=== PATIENT | male | born 1950 | race Caucasian/White ===

== ENCOUNTER → 2020-08-08 09:34 | Outpatient (REF) | payer MEDICARE, SELFPAY ==
--- NOTE | 2020-08-08 09:39 | CA_ITS ---
Transthoracic Echocardiogram Patient (Last, First, Middle): Ruben Corona, Gender: Male Date of : 1950 Age: 69 Procedure Date: 08/08/2020 Procedure Type: Transthoracic Echocardiogram Location: OP Height: 170.18 cm Weight: 110.22 kg BSA: 2.20 m2 Heart Rate: bpm BP: 134 / 70 mmHg Division Traffic Superintendent: Referring MD: Maykel Hernández MD Air Bag Curer: Reji Velazquez MD Symptoms: I35.0 - Nonrheumatic aortic (valve) stenosis Study Quality: Technically Difficult ECG Rhythm: Sinus Conclusions: - 1. Normal LV systolic function with grade 1 diastolic dysfunction with mild LVH 2. Mildly dilated left atrium 3. Mean gradient of 23 mm of mercury with mild aortic stenosis by calculated valve area. This is lower than last echocardiogram which could represent underestimation of calculation gradients 4. Normal RV systolic pressure 5. No pericardial effusion Findings Left Ventricle Normal left ventricular size and systolic function. There is mildly increased left ventricular wall thickness. The visually estimated ejection fraction is between 60-65%. Spectral Doppler is indicative of an impaired relaxation filling pattern. E/E prime ratio is <8, consistent with normal filling pressures. Evidence suggests grade I (mild) diastolic dysfunction. Right Ventricle Normal right ventricular cavity size and systolic function. Atria The left atrium is mildly dilated. Interatrial shunt cannot be excluded. The right atrium is normal in size. Aortic Valve The aortic valve was not well visualized. There is moderate calcification of the aortic valve. There is mild aortic valve stenosis. The peak aortic gradient is 42 mmHg.The mean gradient is 23 mmHg. There is no aortic valve regurgitation. mean gradient calculated on this study is lower than calculated on prior study could be underestimated. Mitral Valve The mitral valve was not well visualized. There is trace mitral valve regurgitation. There is no mitral valve stenosis. Pulmonic Valve The pulmonic valve was not well visualized. Tricuspid Valve Likely normal tricuspid valve structure and function. There is trace tricuspid valve regurgitation. The right ventricular systolic pressure is normal. The right ventricular systolic pressure is 15 mmHg. Normal right atrial pressure. There is no evidence of pulmonary hypertension. Great Vessels All visible segments of the aorta are normal in size. The pulmonary artery was not well visualized. Venous The inferior vena cava is normal in size and collapses greater than 50% with inspiration. Pericardium/Pleural There is no evidence of pericardial effusion. Measurements 2D Linear Measurements IVSd: 1.37 0.6-0.9/0.6-1.0 cm LVIDd: 4.52 3.9-5.3/4.2-5.9 cm LVIDd Index: 2.05 2.4-3.2/2.2-3.1 cm/m2 LVIDs: 3.04 2.0-3.6 cm LVPWd: 1.28 0.7-1.1 cm Ao Root: 3.30 2.1-3.5 cm LA Diam: 4.20 2.7-3.8/3.0-4.0 cm LAIDs Index: 1.91 1.5-2.3 cm/m2 LV Mass: 287.31 67-162/88-224 g LV Mass Index: 130.59 43-95/49-115 g/m2 LVOT Diam: 2.40 3.0+(-)1.3 cm Mitral Valve MV Pk E: 0.57 MV PK A: 0.83 MV Decel Time: 253.00 E/A: 0.70 E'Lateral: 6.19 E'Medial: 4.64 E/E' Med: 12.30 E/E' Lat: 9.20 PHT: 74.00 MVA PHT: 2.97 Decel [place]: 2.26 Aortic Valve AoV Pk Mendel: 3.23 AoV Mn Mendel: 2.24 AoV VTI: 0.79 AoV Pk Grad: 42.00 Aov Mn Grad: 23.00 JOSE MARIA Cont.VTI: 1.70 LVOT LVOT Pk Mendel: 1.36 LVOT Mn Mendel: 0.96 LVOT VTI: 0.35 LVOT Pk Grad: 7.00 LVOT Mn Grad: 4.00 LVOT Diam: 2.40 LVOT Area: 4.52 Diastolic Function MV Pk E: 0.57 MV Pk A: 0.83 E/A: 0.70 E'Medial: 4.64 E/E' Med: 12.30 E' Laterial: 6.19 E/E' Lat: 9.20 Tricuspid Valve TR Pk Mendel: 1.70 TR Pk Grad: 12.00 RA Press: 3.00 RVSP: 15.00 Great Vessels Aorta Ao Root-2D: 3.30 2.0-3.7 cm Ao Asc: 3.50 2.1-3.4 cm Pulmonary Valve PV Pk Mendel: 1.17 Peak PV Grad: 5.00 Updated in Other Vendor System with Status of Final Reji Velazquez MD electronically signed on 08/08/2020 4:47:13 PM with status of Final
== END ==
LOC: HO.CARD 09:34
PROVIDERS: Visit Provider Internal Medicine Cardiovascular Disease
DX: I35.0 Nonrheumatic aortic (valve) stenosis (principal)
CPT/HCPCS: 93306

== ENCOUNTER → 2020-08-20 09:52 | Outpatient (BNVA) | payer MEDICARE, SELFPAY | PROVIDERS: PCP Nurse Practitioner Family; Visit Provider Internal Medicine Cardiovascular Disease | DX: I35.0 Nonrheumatic aortic (valve) stenosis (principal); I10 Essential (primary) hypertension | CPT/HCPCS: 93005; 99212 ==

== ENCOUNTER → 2020-09-01 08:17 | Outpatient (BNVA) | payer MEDICARE, SELFPAY | PROVIDERS: PCP Nurse Practitioner Family; Visit Provider Internal Medicine Cardiovascular Disease ==

== ENCOUNTER → 2021-02-02 09:26 | Outpatient (REF) | payer MEDICARE, SELFPAY ==
--- NOTE | 2021-02-02 09:30 | CA_ITS ---
Transthoracic Echocardiogram Patient (Last, First, Middle): Ruben Corona, Gender: Male Date of : 1950 Age: 70 Procedure Date: 02/02/2021 Procedure Type: Transthoracic Echocardiogram Location: OP Height: 170.18 cm Weight: 104.33 kg BSA: 2.15 m2 Heart Rate: bpm BP: 150 / 70 mmHg Assistant Head Cashier: ERVIN Referring MD: Maykel Hernández MD Sweater Designer: Reji Velazquez MD Symptoms: I35.0 - Nonrheumatic aortic (valve) stenosis Study Quality: Fair ECG Rhythm: Sinus Conclusions: - 1. Hyperdynamic LV systolic function with mild LVH with LVEF greater than 70% with impaired relaxation filling pattern with suggestion of elevated left ventricular end-diastolic pressure 2. Mildly dilated left atrium 3. Mild aortic stenosis with mean gradient of 26 mm of mercury 4. Normal RV systolic pressure 5. No pericardial effusion Findings Left Ventricle Normal left ventricular size and systolic function. There is mildly increased left ventricular wall thickness. The visually estimated ejection fraction is >70%. Spectral Doppler is indicative of an impaired relaxation filling pattern. Elevated left ventricular end diastolic pressure. E/E prime ratio is between 8 and 15 consistent with indeterminate filling pressures. Right Ventricle Normal right ventricular cavity size and systolic function. Atria The left atrium is mildly dilated. There is no evidence of interatrial shunt. The right atrium is normal in size. Aortic Valve There is mild calcification of the aortic valve. There is mild aortic valve stenosis. The peak aortic gradient is 45 mmHg.The mean gradient is 26 mmHg. The aortic valve area is 1.60 cm2. There is no aortic valve regurgitation. Mitral Valve There is mild anterior mitral leaflet thickening. There is mild mitral annular calcification. There is trace mitral valve regurgitation. There is no mitral valve stenosis. Pulmonic Valve The pulmonic valve was not well visualized. Tricuspid Valve Likely normal tricuspid valve structure and function. There is trace tricuspid valve regurgitation. The right ventricular systolic pressure is normal. The right ventricular systolic pressure is 20 mmHg. There is no evidence of pulmonary hypertension. Great Vessels All visible segments of the aorta are normal in size. The pulmonary artery was not well visualized. Venous The inferior vena cava is normal in size and collapses greater than 50% with inspiration. Pericardium/Pleural There is no evidence of pericardial effusion. Prior Study Comparison No significant change compared to prior study dated: 08/08/2020. Measurements 2D Linear Measurements IVSd: 1.26 0.6-0.9/0.6-1.0 cm LVIDd: 5.26 3.9-5.3/4.2-5.9 cm LVIDd Index: 2.45 2.4-3.2/2.2-3.1 cm/m2 LVIDs: 3.01 2.0-3.6 cm LVPWd: 1.39 0.7-1.1 cm Ao Root: 2.70 2.1-3.5 cm LA Diam: 4.60 2.7-3.8/3.0-4.0 cm LAIDs Index: 2.14 1.5-2.3 cm/m2 LV Mass: 363.36 67-162/88-224 g LV Mass Index: 169.00 43-95/49-115 g/m2 LVOT Diam: 2.30 3.0+(-)1.3 cm 2D Systolic Function EF 4C: 74.50 >55% EF 2C: 67.50 >55% EF BiP: 71.90 >55% Mitral Valve MV Pk E: 0.83 MV PK A: 0.84 MV Decel Time: 202.00 E/A: 1.00 E'Lateral: 8.27 E'Medial: 8.38 E/E' Med: 9.90 E/E' Lat: 10.00 PHT: 59.00 MVA PHT: 3.73 Decel [place]: 4.12 Aortic Valve AoV Pk Mendel: 3.37 AoV Mn Mendel: 2.42 AoV VTI: 0.87 AoV Pk Grad: 45.00 Aov Mn Grad: 26.00 JOSE MARIA Cont.VTI: 1.60 LVOT LVOT Pk Mendel: 1.25 LVOT Mn Mendel: 0.90 LVOT VTI: 0.34 LVOT Pk Grad: 6.00 LVOT Mn Grad: 4.00 LVOT Diam: 2.30 LVOT Area: 4.15 Diastolic Function MV Pk E: 0.83 MV Pk A: 0.84 E/A: 1.00 E'Medial: 8.38 E/E' Med: 9.90 E' Laterial: 8.27 E/E' Lat: 10.00 Right Ventricle TAPSE (mm): 2.80 Tricuspid Valve TR Pk Mendel: 2.06 TR Pk Grad: 17.00 RA Press: 3.00 RVSP: 20.00 Great Vessels Aorta Ao Root-2D: 2.70 2.0-3.7 cm Ao Asc: 3.60 2.1-3.4 cm Updated in Other Vendor System with Status of Final Reij Velazquez MD electronically signed on 02/03/2021 3:43:21 PM with status of Final
== END ==
LOC: HO.CARD 09:26
PROVIDERS: Visit Provider Internal Medicine Cardiovascular Disease
DX: I35.0 Nonrheumatic aortic (valve) stenosis (principal)
CPT/HCPCS: 93306

== ENCOUNTER 2021-02-17 08:08 | Outpatient (REF) | payer MEDICARE, SELFPAY ==
--- NOTE | ~2021-02-17 | XR_ITS ---
EXAMINATION: XR KNEE, RIGHT CLINICAL INFORMATION: Right knee pain. COMPARISON: None TECHNIQUE: Four views of the right knee. FINDINGS: Bones and soft tissues are normal. No fracture or joint effusion. Alignment is anatomic. Mild medial femorotibial degenerative joint changes are seen. Mild soft tissue swelling anteriorly. XR/XR knee RT 4V IMPRESSION: 1. Mild medial femorotibial osteoarthritis. No acute fracture. 2. Mild prepatellar soft tissue swelling.
== END 2021-02-17 08:09 | disposition home or self-care (01) ==
LOC: HO.HMGCX 08:08
PROVIDERS: PCP Nurse Practitioner Family; Visit Provider Nurse Practitioner Family
DX: M25.561 Pain in right knee (principal)
CPT/HCPCS: 73564

== ENCOUNTER → 2021-02-23 09:07 | Outpatient (BNVA) | payer MEDICARE, SELFPAY | PROVIDERS: PCP Nurse Practitioner Family; Referring Provider Nurse Practitioner Family; Visit Provider Internal Medicine Cardiovascular Disease | DX: I35.0 Nonrheumatic aortic (valve) stenosis (principal); I10 Essential (primary) hypertension | CPT/HCPCS: 93005; 99212 ==

== ENCOUNTER 2021-04-21 16:00 | Outpatient (RCR) | payer MEDICARE, SELFPAY ==
--- NOTE | 2021-02-23 10:02 | MHC.PT.EP ---
[facility] [place] Office [place] Office [place] Office [address] [phone] F: [phone] F: [phone] F: [phone] F: [phone] Physical Therapy Plan of Care Date of Evaluation: Date of Surgery: n/a Diagnosis: R knee pain Assessment: Patient is a 70 year old R handed male who presents with s/s consistent with R knee pain. He works with daily job demands including stairs, walking, driving. Patient past medical history is fairly unremarkable. Current impairments include pain, ROM, strength, joint mobility, activity tolerance and functional mobility. Functional limitations include decreased ability to walk, stand, transfer, negotiate stairs, and perform weight bearing activities.. Patient is motivated with good rehab potential. Skilled PT will address impairments and functional limitations in order to achieve goals. Frequency and Duration: The patient will be seen 2x/week for 5 weeks Short Term Goals: I with HEP - 2 weeks full AROM without ERP - 3 weeks no warmth with palpation - 3 weeks Snf Goals: Strength 5/5 grossly - 5 weeks Able to negotiate stairs pain free - 5 weeks Able to walk 1 hour without pain - 5 weeks Treatment Plan: Modalities to reduce pain, spasms and effusion. Manual therapy to restore motion and function. Therapeutic exercise to improve strength and flexibility. Neuromuscular re-education for posture and balance. Therapeutic activities to return to functional activities of daily living. Electronically signed by: Antolin Michelle PT Please sign and return to therapist. Thank you for your referral.
--- NOTE | 2021-07-17 07:42 | MHC.PT.DC ---
[facility] [place] Office [place] Office [place] Office [address] Sharon Edwards [address] [phone] F: [phone] F: [phone] F: [phone] F: [phone] Physical Therapy Discharge Report Diagnosis: R knee pain Date of Surgery: n/a Date of Evaluation: 02/23/21 Date of Discharge: 04/29/21 Treatments to Date: 8 Cancellations to Date: 0 No Shows to Date: 0 Discharge Status: Achieved Goals Independent with HEP Discharge Summary: Pt achieved all goals and is I with HEP. Pt DC with program. Electronically signed by: Antolin Michelle PT Please sign and return to therapist. Thank you for your referral.
== END 2021-11-02 11:30 | disposition home or self-care (01) ==
LOC: HO.PTCHIC 16:00
PROVIDERS: PCP Nurse Practitioner Family; Visit Provider Nurse Practitioner Family
DX: M25.561 Pain in right knee (principal)
CPT/HCPCS: 97014; 97110; 97161

== ENCOUNTER 2021-08-12 11:36 | Outpatient (REF) | payer MEDICARE, SELFPAY ==
[2021-08-12 14:10] LABS: Alanine Aminotransferase 34 U/L (0-40); Albumin Level 4.5 g/dL (3.5-5.0); Alkaline Phosphatase 63 U/L (39-117); Anion Gap 13 (12-20); Aspartate Amino Transferase 23 U/L (5-37); Bilirubin Total 1.1 mg/dL (0.0-1.0); Blood Urea Nitrogen 20 mg/dL (9-16); Calcium 9.8 mg/dL (8.4-10.2); Carbon Dioxide 29 mmol/L (22-29); Chloride 101 mmol/L (96-108); Cholesterol 254 mg/dL; Estimated Glomerular Filt Rate > 60; Glucose Fasting 89 mg/dL (60-99); HDL Cholesterol 38 mg/dL; LDL Cholesterol Calculated 174 mg/dl; Potassium 4.7 mmol/L (3.3-5.1); Sodium 138 mmol/L (135-145); Total Protein 7.6 g/dL (6.5-8.0); Triglycerides 214 mg/dL
[2021-08-12 14:10] LABS: Appearance Urine TURBID; Color Urine YELLOW; Glucose Urine UA NEG (NEG); Leukocyte Esterase Urine NEG (NEG); Nitrite Urine NEG (NEG); Specific Gravity - Urine 1.025 (1.005-1.025); Urine Blood NEG (NEG); Urine Ketones NEG (NEG); Urine Protein TRACE MG/DL (NEG-TRACE)
[2021-08-12 14:35] LABS: Prostate Specific Antigen Scr 2.35 ng/mL (<0.05-4.0); TSH reflex Free T4 1.08 uIU/mL (0.32-4.0)
== END 2021-08-12 11:37 | disposition home or self-care (01) ==
LOC: HO.HMGCLDS 11:36
PROVIDERS: PCP Nurse Practitioner Family; Visit Provider Nurse Practitioner Family
DX: Z12.5 Encounter for screening for malignant neoplasm of prostate (principal); I10 Essential (primary) hypertension
CPT/HCPCS: 36415; 80053; 80061; 81003; 84153; 84443

== ENCOUNTER 2021-11-03 07:18 | Outpatient (REF) | payer MEDICARE, SELFPAY ==
[2021-11-03 11:34] LABS: Appearance Urine CLEAR; Color Urine YELLOW; Glucose Urine UA NEG (NEG); Leukocyte Esterase Urine NEG (NEG); Nitrite Urine NEG (NEG); Urine Blood NEG (NEG); Urine Ketones NEG (NEG); Urine Protein NEG (NEG-TRACE)
[2021-11-03 11:57] LABS: Alanine Aminotransferase 26 U/L (0-40); Albumin Level 4.4 g/dL (3.5-5.0); Alkaline Phosphatase 56 U/L (39-117); Anion Gap 12 (12-20); Aspartate Amino Transferase 18 U/L (5-37); Blood Urea Nitrogen 18 mg/dL (9-16); Calcium 9.4 mg/dL (8.4-10.2); Carbon Dioxide 26 mmol/L (22-29); Chloride 104 mmol/L (96-108); Cholesterol 214 mg/dL; Estimated Glomerular Filt Rate > 60; Glucose Fasting 106 mg/dL (60-99); HDL Cholesterol 40 mg/dL; LDL Cholesterol Calculated 141 mg/dl; Potassium 4.2 mmol/L (3.3-5.1); Sodium 138 mmol/L (135-145); Total Protein 7.1 g/dL (6.5-8.0); Triglycerides 167 mg/dL
[2021-11-03 12:06] LABS: TSH reflex Free T4 1.18 uIU/mL (0.32-4.0)
== END 2021-11-03 07:19 | disposition home or self-care (01) ==
LOC: HO.HMGCLDS 07:18
PROVIDERS: Visit Provider Nurse Practitioner Family
DX: E78.5 Hyperlipidemia, unspecified (principal)
CPT/HCPCS: 36415; 80053; 80061; 81003; 84443

== ENCOUNTER 2022-02-03 06:29 | Outpatient (REF) | payer MEDICARE, SELFPAY ==
[2022-02-03 11:15] LABS: MANUAL DIFF FLAG NO
[2022-02-03 11:25] LABS: Basophils Percent Auto 0.7 % (0-2); Eosinophils Absolute Auto 0.2 X10*3/uL (0.0-0.4); Eosinophils Percent Auto 2.7 % (0-4); Hematocrit 44.6 % (42.0-52.0); Hemoglobin 14.8 g/dl (14.0-18.0); Imm Gran Abs Auto 0.01 X10*3/uL (0.00-0.03); Imm Gran Pct Auto 0.2 % (0.0-0.4); Lymphocytes Absolute Auto 1.9 X10*3/uL (1.2-4.9); Lymphocytes Percent Auto 32.6 % (20-40); Mean Corpuscular HGB Conc 33.2 g/dl (31.0-36.0); Mean Corpuscular Hemoglobin 30.1 pg (27.0-33.0); Mean Corpuscular Volume 90.7 fL (80.0-98.0); Monocytes Absolute Auto 0.5 X10*3/uL (0.1-1.2); Monocytes Percent Auto 8.6 % (2-11); Neutrophils Absolute Auto 3.2 x10*3/uL (2.0-8.3); Neutrophils Percent Auto 55.2 % (45-73); Platelet Count 144 X10*3/uL (160-400); Red Blood Count 4.92 X10*6/uL (4.60-5.80); Red Cell Distribution Width 12.7 % (11.0-16.0); White Blood Count 5.8 X10*3/uL (4.8-10.8)
[2022-02-03 11:49] LABS: Alanine Aminotransferase 29 U/L (0-40); Albumin Level 4.4 g/dL (3.5-5.0); Alkaline Phosphatase 55 U/L (39-117); Anion Gap 12 (12-20); Aspartate Amino Transferase 25 U/L (5-37); Bilirubin Total 0.9 mg/dL (0.0-1.0); Blood Urea Nitrogen 23 mg/dL (9-16); Calcium 8.9 mg/dL (8.4-10.2); Carbon Dioxide 27 mmol/L (22-29); Chloride 102 mmol/L (96-108); Cholesterol 184 mg/dL; Estimated Glomerular Filt Rate > 60; Glucose Fasting 101 mg/dL (60-99); HDL Cholesterol 45 mg/dL; LDL Cholesterol Calculated 118 mg/dl; Potassium 4.1 mmol/L (3.3-5.1); Sodium 137 mmol/L (135-145); Total Protein 7.1 g/dL (6.5-8.0); Triglycerides 109 mg/dL
[2022-02-03 12:00] LABS: Appearance Urine CLEAR; Color Urine YELLOW; Glucose Urine UA NEG (NEG); Leukocyte Esterase Urine NEG (NEG); Nitrite Urine NEG (NEG); Specific Gravity - Urine 1.025 (1.005-1.025); Urine Blood NEG (NEG); Urine Ketones NEG (NEG); Urine Protein NEG (NEG-TRACE)
[2022-02-03 12:13] LABS: TSH reflex Free T4 1.46 uIU/mL (0.32-4.0)
== END 2022-02-03 06:30 | disposition home or self-care (01) ==
LOC: HO.HMGCLDS 06:29
PROVIDERS: PCP Nurse Practitioner Family; Visit Provider Nurse Practitioner Family
DX: E78.5 Hyperlipidemia, unspecified (principal); I10 Essential (primary) hypertension
CPT/HCPCS: 36415; 80053; 80061; 81003; 84443; 85025

== ENCOUNTER → 2022-02-08 09:10 | Outpatient (REF) | payer MEDICARE, SELFPAY ==
--- NOTE | 2022-02-08 09:13 | CA_ITS ---
Transthoracic Echocardiogram Patient (Last, First, Middle): Ruben Corona, Gender: Male Date of : 1950 Age: 71 Procedure Date: 02/08/2022 Procedure Type: Transthoracic Echocardiogram Location: OP Height: 170.18 cm Weight: 97.52 kg BSA: 2.09 m2 Heart Rate: 49 bpm BP: 132 / 64 mmHg Obiee Architect: SB Referring MD: Maykel Hernández MD Symptoms: I35.0 - Nonrheumatic aortic (valve) stenosis Study Quality: Adequate w contrast ECG Rhythm: Bradycardia w frequent PVC Conclusions: - Normal left ventricular cavity size. There is normal left ventricular wall thickness. The left ventricular systolic function is normal. The visually estimated ejection fraction is between 60-65%. - Elevated filling pressures. - Mildly increased right ventricular cavity size. There is normal right ventricular systolic function. - Severe biatrial enlargement. - There is moderate aortic valve stenosis. The peak aortic velocity is 3.23 m/s. The mean gradient is 26 mmHg. The aortic valve area is 1.43 cm2. - There is mild dilatation of the ascending aorta measuring 3.50 cm. Findings Procedure Information Contrast agent, definity, is being given per protocol without apparent complications. Left Ventricle Normal left ventricular cavity size. There is normal left ventricular wall thickness. The left ventricular systolic function is normal. The visually estimated ejection fraction is between 60-65%. There is no evidence of regional wall motion abnormalities. Abnormal diastolic function is noted. Spectral Doppler is indicative of a pseudonormal filling pattern. Elevated filling pressures. Right Ventricle Mildly increased right ventricular cavity size. There is normal right ventricular systolic function. Atria Severe biatrial enlargement. Aortic Valve There is moderate calcification of the aortic valve. There is mild thickening of the aortic valve. There is moderate aortic valve stenosis. The peak aortic velocity is 3.23 m/s. The mean gradient is 26 mmHg. The aortic valve area is 1.43 cm2. There is trace (trivial) aortic valve regurgitation. Mitral Valve The mitral valve appears normal. There is trace mitral valve regurgitation. There is no mitral valve stenosis. Pulmonic Valve Normal pulmonic valve structure and function. There is trace pulmonic valve regurgitation. Tricuspid Valve Normal tricuspid valve structure and function. There is trace tricuspid valve regurgitation. Normal right atrial pressure. There is no evidence of pulmonary hypertension. Great Vessels The pulmonary artery was not well visualized. There is mild dilatation of the ascending aorta measuring 3.50 cm. Venous The inferior vena cava is normal in size and collapses greater than 50% with inspiration. Pericardium/Pleural There is no evidence of pericardial effusion. Prior Study Comparison Changes noted compared to prior study dated: 02/02/2021. Severe biatrial enlargement. Moderate aortic valve stenosis. Measurements 2D Linear Measurements IVSd: 1.00 0.6-0.9/0.6-1.0 cm LVIDd: 5.45 3.9-5.3/4.2-5.9 cm LVIDd Index: 2.61 2.4-3.2/2.2-3.1 cm/m2 LVIDs: 3.33 2.0-3.6 cm LVPWd: 0.92 0.7-1.1 cm LA Diam: 4.70 2.7-3.8/3.0-4.0 cm LAIDs Index: 2.25 1.5-2.3 cm/m2 LV Mass: 246.79 67-162/88-224 g LV Mass Index: 118.08 43-95/49-115 g/m2 LVOT Diam: 2.10 3.0+(-)1.3 cm 2D Systolic Function EF 4C: 66.60 >55% EF 2C: 48.20 >55% EF BiP: 59.00 >55% Mitral Valve MV Pk E: 0.90 MV PK A: 0.58 MV Decel Time: 189.00 E/A: 1.50 E'Medial: 6.20 E/E' Med: 14.40 PHT: 55.00 MVA PHT: 4.00 Decel [place]: 4.73 Aortic Valve AoV Pk Mendel: 3.23 AoV Mn Mendel: 2.43 AoV VTI: 0.91 AoV Pk Grad: 42.00 Aov Mn Grad: 26.00 JOSE MARIA Cont.VTI: 1.43 LVOT LVOT Pk Mendel: 1.31 LVOT Mn Mendel: 0.96 LVOT VTI: 0.38 LVOT Pk Grad: 7.00 LVOT Mn Grad: 5.00 LVOT Diam: 2.10 LVOT Area: 3.46 Diastolic Function MV Pk E: 0.90 MV Pk A: 0.58 E/A: 1.50 E'Medial: 6.20 E/E' Med: 14.40 Right Ventricle TAPSE (mm): 29.50 TVS' Mendel: 14.50 Tricuspid Valve TR Pk Mendel: 1.83 TR Pk Grad: 13.00 RA Press: 3.00 RVSP: 16.00 Great Vessels Aorta Sinus of Valsalva: 3.30 2.0-3.5 cm Ao Asc: 3.50 2.1-3.4 cm Pulmonary Valve PV Pk Mendel: 1.10 Peak PV Grad: 5.00 Updated in Other Vendor System with Status of Final Maykel Hernández MD electronically signed on 02/08/2022 4:20:31 PM with status of Final
== END ==
LOC: HO.CARD 09:10
PROVIDERS: PCP Nurse Practitioner Family; Visit Provider Internal Medicine Cardiovascular Disease
DX: I35.0 Nonrheumatic aortic (valve) stenosis (principal)
CPT/HCPCS: 93306; Q9957

== ENCOUNTER → 2022-02-24 09:26 | Outpatient (BNVA) | payer MEDICARE, SELFPAY | PROVIDERS: PCP Nurse Practitioner Family; Referring Provider Nurse Practitioner Family; Visit Provider Internal Medicine Cardiovascular Disease | DX: I35.0 Nonrheumatic aortic (valve) stenosis (principal); I10 Essential (primary) hypertension; R00.1 Bradycardia, unspecified | CPT/HCPCS: 93005; 99212 ==

== ENCOUNTER → 2022-03-02 07:02 | Outpatient (REF) | payer MEDICARE, SELFPAY ==
--- NOTE | 2022-03-02 07:04 | HM_ITS ---
Conclusion: 1. Patient was monitored for total period of 3 days 2. Baseline rhythm was normal sinus rhythm with frequent sinus bradycardia with average heart rate of 48 beats per minute 3. Episodes of profound bradycardia with heart rate as low as 28 beats per minute mostly during sleep hours 4. No significant pauses greater than 3 seconds noted 5. Total of 34,611 PACs accounting for 15.2% of total beats account for frequent PACs 6. No patient reported events MTDD
== END ==
LOC: HO.CARD 07:02
PROVIDERS: Visit Provider Internal Medicine Cardiovascular Disease
DX: R00.1 Bradycardia, unspecified (principal)
CPT/HCPCS: 93242

== ENCOUNTER 2022-04-21 08:20 | Outpatient (REF) | payer MEDICARE, SELFPAY ==
[2022-04-21 11:27] LABS: MANUAL DIFF FLAG NO
[2022-04-21 11:36] LABS: Basophils Absolute Auto 0.1 X10*3/uL (0.0-0.2); Basophils Percent Auto 0.8 % (0-2); Eosinophils Absolute Auto 0.2 X10*3/uL (0.0-0.4); Eosinophils Percent Auto 2.8 % (0-4); Hemoglobin 14.6 g/dl (14.0-18.0); Imm Gran Abs Auto 0.02 X10*3/uL (0.00-0.03); Imm Gran Pct Auto 0.3 % (0.0-0.4); Lymphocytes Percent Auto 31.5 % (20-40); Mean Corpuscular HGB Conc 33.2 g/dl (31.0-36.0); Mean Corpuscular Hemoglobin 29.9 pg (27.0-33.0); Mean Platelet Volume 11.8 fL (9.4-12.4); Monocytes Absolute Auto 0.6 X10*3/uL (0.1-1.2); Monocytes Percent Auto 9.1 % (2-11); Neutrophils Absolute Auto 3.6 x10*3/uL (2.0-8.3); Neutrophils Percent Auto 55.5 % (45-73); Platelet Count 170 X10*3/uL (160-400); Red Blood Count 4.89 X10*6/uL (4.60-5.80); Red Cell Distribution Width 12.9 % (11.0-16.0); White Blood Count 6.5 X10*3/uL (4.8-10.8)
== END 2022-04-21 08:21 | disposition home or self-care (01) ==
LOC: HO.HMGCLDS 08:20
PROVIDERS: PCP Nurse Practitioner Family; Visit Provider Nurse Practitioner Family
DX: D69.6 Thrombocytopenia, unspecified (principal)
CPT/HCPCS: 36415; 85025

== ENCOUNTER 2022-05-12 08:25 | Day surgery (SDC) | payer MEDICARE, SELFPAY ==
--- NOTE | 2022-05-11 13:55 | HO.ANESPROP2 ---
Documented by User: Racheal Copeland NP 05/11/22 13:59 HPI - Anesthesia Eval Consult details Narrative: 71yo M for Colonoscopy Chronic trisha. Cardiology aware. 02/2022 holter without significant issue. [facility] Active Problems Active Problems: All Active Problems (Updated 05/10/22 @ 11:04 by Guillermo Torres, [facility]) COVID-19 (Acute) Bradycardia (Acute) Thrombocytopenia (Acute) Screening for colon cancer (Acute) Dyslipidemia (Acute) Encounter for annual wellness visit (AWV) in Medicare patient (Acute) Screening PSA (prostate specific antigen) (Acute) Right knee pain (Acute) Hypertension (Acute) Aortic stenosis (Acute) Past Medical History Medical History (Updated 05/11/22 @ 13:56 by Racheal Copeland NP) Aortic stenosis Bradycardia Dyslipidemia Hypertension Refused influenza vaccine Refused pneumococcal vaccination Thrombocytopenia Family History Family History Father AA (aortic aneurysm) Surgical History Surgical History (Updated 02/24/22 @ 09:33 by ALL Cota) No pertinent past surgical history Social History Social History (Updated 02/24/22 @ 09:33 by ALL Cota) Housing: House Alcohol intake: current Alcohol intake frequency: a few times a week Alcohol type: beer Patient Tobacco Use Status: Never used Tobacco e-Cigarette/Vaping Use: Never Used Second Hand Smoke Exposure: No Use of substances other than those prescribed or required for medical reasons: No Are you DNR?: No Advance Directives: No Advance Directives Information Provided: Yes service: No Current occupational status: retired Cognitive needs: No Hearing needs: No Vision needs: No Meds Allergies Allergy/AdvReac Type Severity Reaction Status Date / Time Codeine Allergy Unknown rash Uncoded 05/10/22 10:25 Exam Exam Date and Time: May 11, 2022 1355 Pertinent Lab Results Pertinent Lab Results: Laboratory Tests 02/03/22 04/21/22 06:48 08:25 WBC 6.5 Hgb 14.6 Hct 44.0 Plt Count 170 Sodium 137 Potassium 4.1 Chloride 102 Carbon Dioxide 27 BUN 23 H Creatinine 0.91 Narrative Narrative: 3 Day Holter 02/2022 Conclusion: 1. Patient was monitored for total period of 3 days 2. Baseline rhythm was normal sinus rhythm with frequent sinus bradycardia with average heart rate of 48 beats per minute 3. Episodes of profound bradycardia with heart rate as low as 28 beats per minute mostly during sleep hours 4. No significant pauses greater than 3 seconds noted? 5. Total of 34,611 PACs accounting for 15.2% of total beats account for frequent PACs 6. No patient reported events EKG 01/2022 Sinus bradycardia 47 beats per minute, competing junctional rhythm and occasional premature ventricular complexes, QT interval 407 milliseconds. ECHO 01/2022 Conclusions: - Normal left ventricular cavity size.? There is normal left ? ? ventricular wall thickness.? The left ventricular systolic ? ? ? function is normal.? The visually estimated ejection fraction is between 60-65%.? - Elevated filling pressures.? - Mildly increased right ventricular cavity size.? There is? ? ? normal right ventricular systolic function.? - Severe biatrial enlargement. ? - There is moderate aortic valve stenosis.? The peak aortic? ? ? velocity is 3.23 m/s.? The mean gradient is 26 mmHg.? The aortic valve area is 1.43 cm2.? - There is mild dilatation of the ascending aorta measuring 3.50 cm.? Assessment and Plan Assessment Anesthesia Assessment: Chart Reviewed Documented by User: Thai Odom MD 05/12/22 09:41 [facility] Past Medical History Medical History (Updated 05/11/22 @ 13:56 by Racheal Copeland NP) Aortic stenosis Bradycardia Dyslipidemia Hypertension Refused influenza vaccine Refused pneumococcal vaccination Thrombocytopenia Family History Family History Father AA (aortic aneurysm) Family history of problems with anesthesia: No Surgical History Surgical History (Updated 02/24/22 @ 09:33 by ALL Cota) No pertinent past surgical history History of Problems with Anesthesia: No Social History Social History (Updated 02/24/22 @ 09:33 by ALL Cota) Housing: House Alcohol intake: current Alcohol intake frequency: a few times a week Alcohol type: beer Patient Tobacco Use Status: Never used Tobacco e-Cigarette/Vaping Use: Never Used Second Hand Smoke Exposure: No Use of substances other than those prescribed or required for medical reasons: No Are you DNR?: No Advance Directives: No Advance Directives Information Provided: Yes service: No Current occupational status: retired Cognitive needs: No Hearing needs: No Vision needs: No Meds Allergies Allergy/AdvReac Type Severity Reaction Status Date / Time Codeine Allergy Unknown rash Uncoded 05/10/22 10:25 Exam Airway Mallampati Class: IV TM Dist: >3cm Loose/Missing/Broken Teeth: No Heart: rrr Lungs: clear Assessment and Plan Final Anesthetic Review Family History of Problems with Anesthesia: No History of Problems with Anesthesia: No NPO: Yes ASA Class: III Final Preanesthetic Review: No Changes in Pt Med Stat, Meds/Allgs Chart Reviewed, Consent Obtained/Reviewed and Anes Risks/Benef Reviewed Patient Risk: Intermediate Procedure Risk: Low Anesthetic Plan Anesthetic Plan: MAC: Disposition: Standard PACU
[2022-05-12 08:55] VITALS: BMI 33.0
[2022-05-12 09:22] VITALS: BP 133/58; PULSE 49; RESP 16; TEMP 36.7; O2SAT 95
[2022-05-12] MEDS: Lactated Ringers 1,000 ML 100 ML IVCONT (09:23)
[2022-05-12 10:35] VITALS: BP 111/45; PULSE 46; RESP 16; TEMP 36.1; O2SAT 96
--- NOTE | 2022-05-12 10:35 | PM.OP ---
Brief Operative Note Date of Service: 05/12/22 Pre-op diagnosis: Screening Post-op diagnosis: other (Polyps) Procedure: Colonoscopy to the cecum and TI with biopsy/removal of polyp, and hot snare polypectomy of TC polyp Surgeon: Homar Torres Anesthesia: MAC Was an Precipitator Supervisor used for this Procedure?: No Estimated blood loss (mL): 2.0 Pathology: other (A. Ascending colon polyp) Condition: stable Disposition: PACU
[2022-05-12 10:50] VITALS: BP 130/55; PULSE 45; RESP 18; TEMP 36.1; O2SAT 97
--- NOTE | 2022-05-12 11:05 | OP_ITS ---
SURGEON: Homar Torres MD INDICATIONS: The patient presents for evaluation of colorectal cancer screening and personal history of tubular adenoma of the colon. Full consent has been obtained from him for this, including risks of bleeding and perforation. PREOPERATIVE DIAGNOSIS: Personal history of tubular adenoma of the colon and colorectal cancer screening. POSTOPERATIVE DIAGNOSIS: Personal history of tubular adenoma of the colon and colorectal cancer screening, colon polyps, diverticulosis, internal hemorrhoids. PROCEDURE PERFORMED: Colonoscopy to the cecum and terminal ileum with biopsy and removal of polyp, and hot snare polypectomy. ESTIMATED BLOOD LOSS: COMPLICATIONS: ANESTHESIA: ASSISTANTS: SPECIMENS: PREPOPERATIVE MEDICATION USED: Monitored anesthesia care. DESCRIPTION OF PROCEDURE: The patient was placed in the left lateral decubitus position. The digital rectal exam revealed no abnormalities. The Olympus video pediatric colonoscope was entered into the rectum and advanced easily to the cecum. Once in the cecum, I did identify normal-appearing cecal pouch with appendiceal orifice and a normal-appearing ileocecal valve. The terminal ileum was cannulated and appeared normal. The scope was withdrawn back in the colon. The entire cecum and the ileocecal valve appeared normal. The scope was slowly withdrawn, assessing all mucosal surfaces carefully. Preparation was excellent. In the ascending colon, was an approximately 4 mm polyp, which was biopsied and completely removed with a cold biopsy forceps. In the transverse colon, was an approximately 8 mm grossly adenomatous polyp, which was removed by hot snare polypectomy, but not recovered. The polypectomy site appeared clean, without any sign of residual polyp nor bleeding. I did not visualize any other polyps, colitis, or angiodysplasia. Some moderate amount of sigmoid diverticulosis. In the rectum, scope was retroflexed visualizing internal hemorrhoids, but no other pathology. The rectal mucosa appeared normal. The scope was straightened and withdrawn from the patient. He tolerated the procedure well and was returned to the recovery area in stable condition. IMPRESSION: 1. Colon polyps. 2. Diverticulosis. 3. Internal hemorrhoids. PLAN: I would recommend a repeat colonoscopy in 5 years for further surveillance. He was advised not to use any aspirin or NSAIDs for 1 week. MD BG Pathak/SHANIQUAL / [id number]
== END 2022-05-12 11:48 | disposition home or self-care (01) ==
PROVIDERS: PCP Nurse Practitioner Family; Visit Provider Internal Medicine
PROC: 0DJD8ZZ Inspection of Lower Intestinal Tract, Via Natural or Artificial Opening Endoscopic (ICD-10-PCS; CPT 45378; principal; 2022-05-12 09:30)
DX: Z12.11 Encounter for screening for malignant neoplasm of colon (principal); Z86.010 Personal history of colon polyps; D12.2 Benign neoplasm of ascending colon; D12.3 Benign neoplasm of transverse colon; K57.30 Diverticulosis of large intestine without perforation or abscess without bleeding; K64.8 Other hemorrhoids; I10 Essential (primary) hypertension; E78.5 Hyperlipidemia, unspecified; G47.33 Obstructive sleep apnea (adult) (pediatric); Z99.89 Dependence on other enabling machines and devices; Z79.899 Other long term (current) drug therapy
CPT/HCPCS: 45385; 45380; 88305

== ENCOUNTER 2023-01-05 07:55 | Outpatient (AMB) | payer MEDICARE, SELFPAY ==
[2023-01-05 08:03] VITALS: BP 140/78; PULSE 51; O2SAT 96; BMI 36.2
--- NOTE | 2023-01-05 08:03 | MHC.PC.OV ---
Vital Signs 01/05/23 08:03 Height 5 ft 7 in Weight 231 lb 4 oz BMI 36.2 BP 140/78 H Blood Pressure Location Rt brachial Position Sitting Pulse 51 Pulse Source Pulse Oximeter Pulse Oximetry (%) 96 Oxygen Delivery Method Room Air Intake Visit Reasons: 6 month follow up Allergies Codeine Allergy (Unknown, Uncoded 01/05/23 08:05) rash Tobacco use date assessed: 01/05/23 Fall risk assessment: No Falls in past year Last assessed Fall Risk: 01/05/23 Dental Screening Dental Screen Date: 01/05/23 Did you have a dental visit in the last 12 months?: Yes Did you have a dental problem in the last 6 months where you did not have access to dental care?: No Was dental information given to patient?: Patient has dentist HPI 6 month follow up HPI Details Pt c/o right upper flank discomfort. He reports that this has been present for 3 weeks. Pt does not have a hx of kidney stones. ? muscle spasm. Pt will let me know if this worsens. He knows to go to the ER with any worsening symptoms. Denies fever, chills, and hematuria. Dyslipidemia: On atorvastatin 80mg. Will order labs. [facility] Medical History Aortic stenosis Bradycardia Dyslipidemia Hypertension Refused influenza vaccine Refused pneumococcal vaccination Thrombocytopenia Surgical History No pertinent past surgical history Family History Father AA (aortic aneurysm) Social History Housing: House Alcohol intake: current Alcohol intake frequency: a few times a week Alcohol type: beer Patient Tobacco Use Status: Never used Tobacco e-Cigarette/Vaping Use: Never Used Second Hand Smoke Exposure: No service: No Current occupational status: retired Cognitive needs: No Hearing needs: No Vision needs: No Questionnaire Thrive Questionnaire Date Thrive assessed: 05/10/22 MOHIT-7 AMB Questionnaire MOHIT-7 Date MOHIT - 7 assessed: 05/10/22 Source: Developed by Drs. Homar Galvan, RamyaNeil Johnston and colleagues, with an educational scott from [employer]. Review of Systems Const Reports as per HPI Physical exam (Primary Care) Vital Signs: Last Vital Signs Pulse 51 01/05/23 08:03 BP 140/78 H 01/05/23 08:03 Pulse Ox 96 01/05/23 08:03 Oxygen Delivery Method Room Air 01/05/23 08:03 BMI result Body Mass Index 36.2 Tobacco/Smoking Status: Tobacco use Status Tobacco use date assessed 01/05/23 01/05/23 08:07 Patient Tobacco Use Status Never used Tobacco 01/05/23 08:07 e-Cigarette/Vaping Use Never Used 01/05/23 08:07 Thrive Assessment: Date of Thrive Assessment Date Thrive assessed 05/10/22 01/05/23 08:07 Const General: cooperative Nutritional Appearance: obese Orientation/consciousness: patient oriented x3 Resp Effort & Inspection: normal respiratory effort Auscultation: clear to auscultation bilaterally Cardio Rate: regular rate Rhythm: regular rhythm Heart sounds: S1 normal heart sound present, S2 normal heart sound present and Murmur heart sound present systolic General: Yes no CVA tenderness Back/Spine/Pelvis Other: right upper flank discomfort with turning upper torso, not TTP Back: no CVA tenderness Skin Other: no erythema Neuro General: patient oriented x3 Psych Appearance: grossly normal Mental Status: mental status grossly normal Speech and movement: Normal speech and movement present Affect: normal affect Attitude: cooperative Thought process: Normal thought process present Thought content: Normal thought content present Insight: Good insight present (Psych) Judgement: Good judgement present (Psych) Assessment and Plan Assessment & Plan (1) Dyslipidemia: Code(s): E78.5 - Hyperlipidemia, unspecified Plan: Labs ordered (2) Screening PSA (prostate specific antigen): Code(s): Z12.5 - Encounter for screening for malignant neoplasm of prostate Plan: PSA ordered Plan The patient agreed to the use of a pediatric medical assistant for this encounter. Scribed for DEBORAH Rod by Nafisa Weinstein pediatric medical assistant, on 01/05/2023 at 08:20 EST. Orders: Orders Comprehensive [place]. Panel Fast Today E78.5 - Hyperlipidemia, unspecified Lipid Panel Today E78.5 - Hyperlipidemia, unspecified TSH reflex Free T4 Today E78.5 - Hyperlipidemia, unspecified Complete Blood Count Auto Diff Today E78.5 - Hyperlipidemia, unspecified UA CC w/rflx Micro + Cult Today E78.5 - Hyperlipidemia, unspecified Prostate Specific Antigen Scr Today Z12.5 - Encounter for screening for malignant neoplasm of prostate Coding Level of Care Code Est Pt Level 3 (05977) Diagnoses Dyslipidemia E78.5 Screening PSA (prostate specific antigen) Z12.5
== END 2023-01-05 09:57 | disposition home or self-care (01) ==
PROVIDERS: PCP Nurse Practitioner Family; Visit Provider Nurse Practitioner Family
DX: E78.5 Hyperlipidemia, unspecified (principal); Z12.5 Encounter for screening for malignant neoplasm of prostate
CPT/HCPCS: 99213

== ENCOUNTER 2023-01-21 09:18 | Outpatient (REF) | payer MEDICARE, SELFPAY ==
[2023-01-21 11:09] LABS: MANUAL DIFF FLAG NO
[2023-01-21 11:38] LABS: Basophils Percent Auto 0.7 % (0-2); Eosinophils Absolute Auto 0.3 X10*3/uL (0.0-0.4); Eosinophils Percent Auto 4.2 % (0-4); Hematocrit 43.6 % (42.0-52.0); Hemoglobin 14.8 g/dl (14.0-18.0); Imm Gran Abs Auto 0.01 X10*3/uL (0.00-0.03); Imm Gran Pct Auto 0.2 % (0.0-0.4); Lymphocytes Absolute Auto 1.8 X10*3/uL (1.2-4.9); Lymphocytes Percent Auto 30.4 % (20-40); Mean Corpuscular HGB Conc 33.9 g/dl (31.0-36.0); Mean Corpuscular Hemoglobin 30.8 pg (27.0-33.0); Mean Corpuscular Volume 90.6 fL (80.0-98.0); Mean Platelet Volume 11.6 fL (9.4-12.4); Monocytes Absolute Auto 0.4 X10*3/uL (0.1-1.2); Monocytes Percent Auto 6.8 % (2-11); Neutrophils Absolute Auto 3.4 x10*3/uL (2.0-8.3); Neutrophils Percent Auto 57.7 % (45-73); Platelet Count 162 X10*3/uL (160-400); Red Blood Count 4.81 X10*6/uL (4.60-5.80); Red Cell Distribution Width 12.6 % (11.0-16.0); White Blood Count 5.9 X10*3/uL (4.8-10.8)
[2023-01-21 11:55] LABS: Appearance Urine Clear; Color Urine Yellow; Glucose Urine UA Negative (Negative); Leukocyte Esterase Urine Negative (Negative); Nitrite Urine Negative (Negative); PH 6.5 (5.0-9.0); Specific Gravity - Urine 1.015 (1.005-1.025); Urine Blood Negative (Negative); Urine Ketones Negative (Negative); Urine Protein Negative (Neg-Trace)
[2023-01-21 12:26] LABS: Prostate Specific Antigen Scr 1.86 ng/mL (<0.05-4.0)
[2023-01-21 12:29] LABS: Albumin Level 4.2 g/dL (3.5-5.0); Alkaline Phosphatase 70 U/L (39-117); Anion Gap 17 (12-20); Aspartate Amino Transferase 25 U/L (5-37); Bilirubin Total 0.8 mg/dL (0.0-1.0); Blood Urea Nitrogen 17 mg/dL (9-16); Calcium 9.2 mg/dL (8.4-10.2); Carbon Dioxide 21 mmol/L (22-29); Chloride 105 mmol/L (96-108); Cholesterol 187 mg/dL; Estimated Glomerular Filt Rate > 60; Glucose Fasting 93 mg/dL (60-99); HDL Cholesterol 41 mg/dL; LDL Cholesterol Calculated 128 mg/dl; Potassium 4.1 mmol/L (3.3-5.1); Sodium 139 mmol/L (135-145); Total Protein 7.2 g/dL (6.5-8.0); Triglycerides 93 mg/dL
[2023-01-21 12:50] LABS: Alanine Aminotransferase 42 U/L (0-40); TSH reflex Free T4 1.43 uIU/mL (0.32-4.0)
== END 2023-01-21 09:19 | disposition home or self-care (01) ==
LOC: HO.HMGCLDS 09:18
PROVIDERS: PCP Nurse Practitioner Family; Visit Provider Nurse Practitioner Family
DX: Z12.5 Encounter for screening for malignant neoplasm of prostate (principal); E78.5 Hyperlipidemia, unspecified
CPT/HCPCS: 36415; 80053; 80061; 81003; 84153; 84443; 85025

== ENCOUNTER 2023-02-15 08:27 | Outpatient (REF) | payer MEDICARE, SELFPAY ==
--- NOTE | ~2023-02-15 | US_ITS ---
EXAMINATION: US ABDOMEN COMPLETE CLINICAL INFORMATION: Abnormal levels of other serum enzymes. COMPARISON: None available. TECHNIQUE: Real-time imaging of the abdominal viscera. FINDINGS: PANCREAS: Limited. The visualized pancreatic head and body are normal in appearance. The remainder of the pancreas is obscured from visualization by the overlying bowel gas. ABDOMINAL AORTA: The proximal, mid, and distal segments are normal in caliber. INFERIOR VENA CAVA: Visualized portions are normal. LIVER: The liver is normal in size. The liver contour is normal. There is diffuse increased liver parenchymal echogenicity. No focal hepatic lesion. There is no intrahepatic biliary duct dilatation seen. GALLBLADDER: Normal. The gallbladder is physiologically distended without evidence of stones, sludge, polyps, wall thickening or pericholecystic fluid. COMMON BILE DUCT: Normal in caliber measuring 0.21 cm in diameter. RIGHT KIDNEY: Normal. No hydronephrosis. No renal calculi or focal parenchymal lesions. The kidney measures 11.8 cm in maximum dimension. LEFT KIDNEY: Normal. No hydronephrosis. No renal calculi or focal parenchymal lesions. The kidney measures 12.3 cm in maximum dimension. SPLEEN: Normal. The spleen measures 11.5 cm in maximum dimension. FREE FLUID: None. US/US abdomen complete IMPRESSION: 1. There is generalized increase in hepatic echotexture, consistent with fatty infiltration or hepatocellular disease. Please correlate clinically. No focal hepatic mass or intrahepatic biliary dilatation is seen. 2. Technically limited ultrasound examination of the pancreas.
[2023-02-15 12:05] LABS: HBS Num1 1.58 mIU/mL (0-7.99); HBc Num1 0.09 S/CO (0.00-0.79); HBsAGNum1 0.35 S/CO (0.00-0.99); Hepatitis A Antibody IgM 0.25 Index (0-0.79); Hepatitis B Core Antibody Nonreactive (Nonreactive); Hepatitis B Surface Antigen Negative (Negative); ~HepC Num1 0.06 S/CO (0.00-0.79); ~Hepatitis A Antibody IgM Nonreactive (Nonreactive); ~Hepatitis B Surface Antibody NONREACTIVE (Nonreactive); ~Hepatitis C Antibody Nonreactive (Nonreactive)
== END 2023-02-15 08:28 | disposition home or self-care (01) ==
LOC: HO.HMGCX 08:27
PROVIDERS: PCP Nurse Practitioner Family; Visit Provider Nurse Practitioner Family
DX: R74.8 Abnormal levels of other serum enzymes (principal); Z11.59 Encounter for screening for other viral diseases; Z72.89 Other problems related to lifestyle
CPT/HCPCS: 36415; 76700; 86704; 86706; 86709; 86803; 87340

== ENCOUNTER 2023-02-16 | Outpatient (REF) | payer MEDICARE, SELFPAY | END 2023-02-16 00:01 | disposition home or self-care (01) | LOC: CF | PROVIDERS: PCP Nurse Practitioner Family; Visit Provider Internal Medicine Cardiovascular Disease | DX: R74.8 Abnormal levels of other serum enzymes (principal); I35.0 Nonrheumatic aortic (valve) stenosis; I10 Essential (primary) hypertension; Z79.899 Other long term (current) drug therapy | CPT/HCPCS: 93005; 99212 ==

== ENCOUNTER 2023-02-16 09:20 | Outpatient (AMB) | payer MEDICARE, SELFPAY ==
[2023-02-16 09:27] VITALS: BP 138/70; PULSE 47; BMI 36.5
--- NOTE | 2023-02-16 09:27 | A.OFFVIS_ITS ---
Intake Vital Signs 02/16/23 09:27 Height 5 ft 7 in Weight 233 lb 3.985 oz BMI 36.5 BP 138/70 Blood Pressure Location Lt brachial Position Sitting Pulse 47 L Pulse Source Monitor Intake Visit Reasons: 1 yr f/up Intake Note: 1 year follow up with EKG. Audio Engineer Required: No Accompanied by: Spouse Allergies Codeine Allergy (Unknown, Uncoded 02/16/23 09:30) rash Medication List - Last Reconciled 02/16/23 by Maykel Hernández MD atorvastatin 80 mg PO BEDTIME 90 days blood pressure monitor As directed ergocalciferol (vitamin D2) 1,250 mcg PO QWEEK 90 days ezetimibe 10 mg PO DAILY hydrochlorothiazide 12.5 mg PO DAILY lisinopril 10 mg PO DAILY HPI HPI Comments History of Present Illness Details Pleasant 72-year-old gentleman here for follow-up. He was seen 2018 when he underwent echocardiography which showed moderate aortic valve stenosis. 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 Repeat echocardiogram showed [id number] aortic stenosis. Echocardiography in January 2021 is showing similar findings of mild to moderate aortic valve stenosis. Clinically has no chest discomfort shortness of breath. Recent echocardiography has shown moderate aortic valve stenosis. He returns for follow-up and continues to be clinically stable. He is noticed to be bradycardic with sinus bradycardia with some junctional beats in between. He is denying any dizziness or lightheadedness. No history of syncope. 02/16/2023: He returns for follow-up. He has some blood workup showing elevated liver enzymes and has been undergoing further workup. From cardiovascular point of view, he has been stable. Denying any chest discomfort, shortness of breath or syncope. Blood pressure control is reasonable. He has chronic bradycardia. Previous Holter monitoring did not show any advanced heart block or concerning bradycardia during awake hours. [facility] Medical History (Updated 02/16/23 @ 09:58 by aMykel Hernández MD) Aortic stenosis Bradycardia Dyslipidemia Hypertension Refused influenza vaccine Refused pneumococcal vaccination Thrombocytopenia Surgical History No pertinent past surgical history Family History Father AA (aortic aneurysm) Social History Housing: House Alcohol intake: current Alcohol intake frequency: a few times a week Alcohol type: beer Patient Tobacco Use Status: Never used Tobacco e-Cigarette/Vaping Use: Never Used Second Hand Smoke Exposure: No service: No Current occupational status: retired Cognitive needs: No Hearing needs: No Vision needs: No Review of Systems Const Denies weakness ENT Denies dizziness Card Denies chest pain, Denies chest pain with activity, Denies syncope, Denies rapid heart rate, Denies pedal edema, Denies edema, Denies leg edema, Denies lightheadedness, Denies palpitations, Denies dyspnea, Denies dyspnea on exertion and Denies orthopnea Resp Denies cough, Denies dyspnea and Denies dyspnea on exertion GI Denies hematochezia and Denies change in stool character Musc Denies abnormal gait, Denies muscle cramps, Denies muscle weakness, Denies numbness, Denies radiating pain into limb and Denies tingling Neuro Denies abnormal gait, Denies dizziness, Denies syncope, Denies numbness, Denies tingling and Denies weakness Endo Denies palpitations Physical Exam Vital Signs: Last Vital Signs Pulse 47 L 02/16/23 09:27 BP 138/70 02/16/23 09:27 BMI result Body Mass Index 36.5 GENERAL APPEARANCE: in no acute distress, overweight. NECK/THYROID: no carotid bruit, no jugular venous distention. murmur radiating to the carotids. SKIN: no suspicious lesions, warm and dry. HEART: Ejection systolic murmur in the aortic area with preserved 2nd heart sound. Bradycardic. LUNGS: clear to auscultation bilaterally. ABDOMEN: normal, bowel sounds present, soft, nontender, nondistended. EXTREMITIES: no clubbing, cyanosis, or edema. PERIPHERAL PULSES: equal. NEUROLOGIC: nonfocal, alert and oriented. Office Procedures EKG Details: Sinus bradycardia 47 beats per minute, leftward axis, minimal voltage criteria for left ventricular hypertrophy, QTC 394 milliseconds. [id number], Complete Assessment & Plan Assessment & Plan (1) Aortic stenosis: Code(s): I35.0 - Nonrheumatic aortic (valve) stenosis Qualifiers: Cardiac valve disease etiology: nonrheumatic Qualified Code(s): I35.0 - Nonrheumatic aortic (valve) stenosis (2) Hypertension: Code(s): I10 - Essential (primary) hypertension Qualifiers: Hypertension type: essential hypertension Qualified Code(s): I10 - Essential (primary) hypertension Plan Pleasant 72-year-old gentleman who is here for follow-up. He has background history of hypertension, hyperlipidemia and moderate aortic valve stenosis. Blood pressure control is good currently. Continue same medications for now. By exam he has moderate . We will repeat echocardiography to reassess aortic stenosis. I explained to him that aortic valve stenosis can cause chest discomfort, shortness of breath and syncope as common symptoms and if he develops any of these symptoms during the 1 year follow-up period then he will reach out to us. Thank you for allowing me to participate in the care of your patient. Please feel free to contact me if you have any questions. Orders: Orders CA echo transthoracic complete Today I35.0 - Nonrheumatic aortic (valve) stenosis Coding Level of Care Code Est Pt Level 4 (11858) Diagnoses Aortic stenosis I35.0 Cardiac valve disease etiology: nonrheumatic Hypertension I10 Hypertension type: essential hypertension CPT Codes EKG - CPT: 35227-[id number], Complete ([id number])
== END 2023-02-16 09:59 | disposition home or self-care (01) ==
PROVIDERS: PCP Nurse Practitioner Family; Referring Provider Nurse Practitioner Family; Visit Provider Internal Medicine Cardiovascular Disease
DX: I35.0 Nonrheumatic aortic (valve) stenosis (principal); I10 Essential (primary) hypertension
CPT/HCPCS: 93010; 99214

== ENCOUNTER → 2023-03-16 07:56 | Outpatient (REF) | payer MEDICARE, SELFPAY ==
--- NOTE | 2023-03-16 07:59 | CA_ITS ---
Transthoracic Echocardiogram Patient (Last, First, Middle): Ruben Corona, Gender: Male Date of : 1950 Age: 72 Procedure Date: 03/16/2023 Procedure Type: Transthoracic Echocardiogram Location: OP Height: 170.18 cm Weight: 104.33 kg BSA: 2.15 m2 Heart Rate: bpm BP: 140 / 60 mmHg Internal Control Specialist: TO Referring MD: Maykel Hernández MD Plastics Plater: Maykel Hernández MD Symptoms: I35.0 - Nonrheumatic aortic (valve) stenosis Study Quality: Fair Conclusions: - Normal left ventricular size and systolic function. There is moderately increased left ventricular wall thickness. The visually estimated ejection fraction is between 55-60%. - E/E prime ratio is between 8 and 15 consistent with indeterminate filling pressures. - There is moderate aortic valve stenosis. - There is mild dilatation of the ascending aorta measuring 3.40 cm. Findings Left Ventricle Normal left ventricular size and systolic function. There is moderately increased left ventricular wall thickness. The visually estimated ejection fraction is between 55-60%. There is no evidence of regional wall motion abnormalities. Abnormal diastolic function is noted. Spectral Doppler is indicative of an impaired relaxation filling pattern. E/E prime ratio is between 8 and 15 consistent with indeterminate filling pressures. Right Ventricle Mildly increased right ventricular cavity size. There is normal right ventricular systolic function. Atria The left atrium is mildly dilated. The right atrium is mildly dilated. Aortic Valve There is a normal trileaflet aortic valve. There is moderate calcification of the aortic valve. There is moderate thickening of the aortic valve. There is moderate aortic valve stenosis. The mean gradient is 26 mmHg. The aortic valve area is 1.26 cm2. There is trace (trivial) aortic valve regurgitation. Mitral Valve The mitral valve appears normal. There is no mitral valve regurgitation. There is no mitral valve stenosis. Pulmonic Valve The pulmonic valve is likely normal. Tricuspid Valve Normal tricuspid valve structure. There is trace tricuspid valve regurgitation. Normal right atrial pressure. There is no evidence of pulmonary hypertension. Great Vessels There is mild dilatation of the ascending aorta measuring 3.40 cm. Venous The inferior vena cava is normal in size and collapses greater than 50% with inspiration. Pericardium/Pleural There is no evidence of pericardial effusion. Prior Study Comparison No significant change compared to prior study dated: 02/08/2022. Measurements 2D Linear Measurements IVSd: 1.40 0.6-0.9/0.6-1.0 cm LVIDd: 4.90 3.9-5.3/4.2-5.9 cm LVIDd Index: 2.28 2.4-3.2/2.2-3.1 cm/m2 LVIDs: 3.10 2.0-3.6 cm LVPWd: 1.30 0.7-1.1 cm LA Diam: 5.10 2.7-3.8/3.0-4.0 cm LAIDs Index: 2.37 1.5-2.3 cm/m2 LV Mass: 334.18 67-162/88-224 g LV Mass Index: 155.43 43-95/49-115 g/m2 LVOT Diam: 2.20 3.0+(-)1.3 cm 2D Systolic Function EF 4C: 62.20 >55% EF 2C: 57.80 >55% EF BiP: 60.60 >55% Mitral Valve MV Pk E: 0.70 MV PK A: 0.78 MV Decel Time: 305.00 E/A: 0.90 E'Lateral: 6.53 E'Medial: 6.31 E/E' Med: 11.10 E/E' Lat: 10.70 PHT: 89.00 MVA PHT: 2.47 Decel [place]: 2.29 Aortic Valve AoV Pk Mendel: 3.35 AoV Mn Mendel: 2.39 AoV VTI: 0.92 AoV Pk Grad: 45.00 Aov Mn Grad: 26.00 JOSE MARIA Cont.VTI: 1.26 LVOT LVOT Pk Mendel: 1.10 LVOT Mn Mendel: 0.78 LVOT VTI: 0.30 LVOT Pk Grad: 5.00 LVOT Mn Grad: 3.00 LVOT Diam: 2.20 LVOT Area: 3.80 Diastolic Function MV Pk E: 0.70 MV Pk A: 0.78 E/A: 0.90 E'Medial: 6.31 E/E' Med: 11.10 E' Laterial: 6.53 E/E' Lat: 10.70 Right Ventricle TAPSE (mm): 32.10 TVS' Mendel: 13.70 Tricuspid Valve TR Pk Mendel: 2.36 TR Pk Grad: 22.00 RA Press: 3.00 RVSP: 25.00 Great Vessels Aorta Sinus of Valsalva: 3.20 2.0-3.5 cm Ao Asc: 3.40 2.1-3.4 cm Updated in Other Vendor System with Status of Final Maykel Hernández MD electronically signed on 03/17/2023 1:52:37 PM with status of Final
== END ==
LOC: HO.CARD 07:56
PROVIDERS: PCP Nurse Practitioner Family; Visit Provider Internal Medicine Cardiovascular Disease
DX: I35.0 Nonrheumatic aortic (valve) stenosis (principal)
CPT/HCPCS: 93306

== ENCOUNTER → 2023-03-16 07:59 | Outpatient (BNV) | payer MEDICARE, SELFPAY | PROVIDERS: PCP Nurse Practitioner Family; Visit Provider Internal Medicine Cardiovascular Disease | DX: I35.0 Nonrheumatic aortic (valve) stenosis (principal) | CPT/HCPCS: 93306 ==

== ENCOUNTER 2023-05-10 07:57 | Outpatient (REF) | payer MEDICARE, SELFPAY ==
[2023-05-10 12:05] LABS: Alanine Aminotransferase 55 U/L (0-40); Albumin Level 4.3 g/dL (3.5-5.0); Alkaline Phosphatase 73 U/L (39-117); Anion Gap 12 (12-20); Aspartate Amino Transferase 28 U/L (5-37); Blood Urea Nitrogen 19 mg/dL (9-16); Calcium 9.5 mg/dL (8.4-10.2); Carbon Dioxide 27 mmol/L (22-29); Chloride 107 mmol/L (96-108); Cholesterol 157 mg/dL (<200); Estimated Glomerular Filt Rate > 60; Glucose Fasting 103 mg/dL (60-99); HDL Cholesterol 39 mg/dL (>40); LDL Cholesterol Calculated 95 mg/dL (<100); Potassium 4.5 mmol/L (3.3-5.1); Sodium 141 mmol/L (135-145); Total Protein 7.5 g/dL (6.5-8.0); Triglycerides 119 mg/dL (<150)
== END 2023-05-10 07:58 | disposition home or self-care (01) ==
LOC: HO.HMGCLDS 07:57
PROVIDERS: PCP Nurse Practitioner Family; Visit Provider Nurse Practitioner Family
DX: E78.5 Hyperlipidemia, unspecified (principal)
CPT/HCPCS: 36415; 80053; 80061

== ENCOUNTER 2023-08-03 13:11 | Outpatient (AMB) | payer MEDICARE, SELFPAY ==
[2023-08-03 13:22] VITALS: BP 130/72; PULSE 72; O2SAT 96; BMI 36.2
--- NOTE | 2023-08-03 13:22 | MHC.PC.OV ---
Vital Signs 08/03/23 13:22 Height 5 ft 7 in Weight 231 lb 2 oz BMI 36.2 BP 130/72 Blood Pressure Location Lt brachial Position Sitting Pulse 72 Pulse Source Pulse Oximeter Pulse Oximetry (%) 96 Oxygen Delivery Method Room Air Intake Visit Reasons: follow up Intake Note: Pt is here to follow up for HTN and lipids Allergies Codeine Allergy (Unknown, Uncoded 08/03/23 13:25) rash Medication List - Last Reconciled 08/03/23 by DEBORAH Ortiz atorvastatin 80 mg PO BEDTIME 90 days blood pressure monitor As directed ergocalciferol (vitamin D2) 1,250 mcg PO QWEEK 90 days ezetimibe 10 mg PO DAILY hydrochlorothiazide 12.5 mg PO DAILY lisinopril 10 mg PO DAILY Tobacco use date assessed: 08/03/23 Fall risk assessment: No Falls in past year Last assessed Fall Risk: 08/03/23 Dental Screening Dental Screen Date: 08/03/23 Did you have a dental visit in the last 12 months?: Yes Was dental information given to patient?: Patient has dentist HPI follow up HPI Details HTN: Blood pressure is stable, managed with hydrochlorothiazide 12.5mg and lisinopril 10mg. Denies chest pain, shortness of breath, headache, dizziness, and blurred vision. Pt follows up with cardiology. [facility] Medical History (Updated 05/24/23 @ 12:12 by DEBORAH Ortiz) Fatty liver Refused influenza vaccine Refused pneumococcal vaccination Bradycardia Thrombocytopenia Dyslipidemia Hypertension Aortic stenosis Surgical History No pertinent past surgical history Family History Father AA (aortic aneurysm) Social History Housing: House Alcohol intake: current Alcohol intake frequency: a few times a week Alcohol type: beer Patient Tobacco Use Status: Never used Tobacco e-Cigarette/Vaping Use: Never Used Second Hand Smoke Exposure: No service: No Current occupational status: retired Cognitive needs: No Hearing needs: No Vision needs: No Questionnaire PHQ-9 Over the last 2 weeks, how often have you been bothered by any of the following problems? 1. Little interest or pleasure in doing things: not at all 2. Feeling down, depressed, or hopeless: not at all 3. Trouble falling or staying asleep, or sleeping too much: not at all 4. Feeling tired or having little energy: not at all 5. Poor appetite or overeating: not at all 6. Feeling bad about yourself - or that you are a failure or have let yourself or your family down: not at all 7. Trouble concentrating on things, such as reading the newspaper or watching television: not at all 8. Moving or speaking so slowly that other people could have noticed. Or the opposite - being so fidgety or restless that you have been moving around a lot more than usual: not at all 9. Thoughts that you would be better off or of hurting yourself in some way: not at all Total score: 0 Source: Developed by Drs. Homar Galvan, Ramya Guzman, Neil Wu and colleagues, with an educational scott from [employer]. Thrive Questionnaire Date Thrive assessed: 08/03/23 I am a: Patient What is your living situation today?: I have a steady place to live Within the past 12 months, did the food you bought not last and you didn't have the money to get more?: Never true Within the past 12 months, did you worry whether your food would run out before you got money to buy more?: Never true Do you have trouble paying for medicines?: No Do you have trouble getting transportation to medical appointments?: No Do you have trouble paying your heating and electricity bill?: No Do you have trouble taking care of your child, family member or friend?: No Do you have trouble with day-to-day activities such as bathing, preparing meals, shopping, managing finances, etc.?: No Are you currently unemployed and looking for a job?: No Are you interested in more education?: No THRIVE Score: 0 AUDIT C Alcohol Use Questionnaire (AUDIT-C) 1. How often do you have a drink containing alcohol?: 2-3 times a week 2. How many drinks containing alcohol do you have on a typical day when you are drinking?: 1 or 2 3. How often do you have six or more drinks on one occasion?: Never Total Score: 3 MOHIT-7 AMB Questionnaire MOHIT-7 Date MOHIT - 7 assessed: 08/03/23 Feeling nervous, anxious, or on edge: 0 = Not at all Not being able to stop or control worryin = Not at all Worrying too much about different things: 0 = Not at all Trouble relaxin = Not at all Being so restless that it is hard to sit still: 0 = Not at all Becoming easily annoyed or irritable: 0 = Not at all Feeling afraid as if something awful might happen: 0 = Not at all Total MOHIT-7 score (0-4 normal; 5-9 mild; 10-14 moderate; 15-21 severe): 0 Source: Developed by Drs. Homar Galvan, Ramya Guzman, Neil Wu and colleagues, with an educational scott from [employer]. Review of Systems Const Reports as per HPI Physical exam (Primary Care) Vital Signs: Last Vital Signs Pulse 72 08/03/23 13:22 BP 130/72 08/03/23 13:22 Pulse Ox 96 08/03/23 13:22 Oxygen Delivery Method Room Air 08/03/23 13:22 BMI result Body Mass Index 36.2 Tobacco/Smoking Status: Tobacco use Status Tobacco use date assessed 08/03/23 08/03/23 13:28 Patient Tobacco Use Status Never used Tobacco 08/03/23 13:22 e-Cigarette/Vaping Use Never Used 08/03/23 13:22 PHQ-9: PHQ-9 Score PHQ-9: Total score 0 08/03/23 14:02 Thrive Assessment: Date of Thrive Assessment Date Thrive assessed 08/03/23 08/03/23 13:42 Const General: cooperative Orientation/consciousness: patient oriented x3 Resp Effort & Inspection: normal respiratory effort Auscultation: clear to auscultation bilaterally Cardio Rate: regular rate Rhythm: regular rhythm Heart sounds: S1 normal heart sound present, S2 normal heart sound present and Murmur heart sound present systolic Neuro General: patient oriented x3 Extrem Right lower extremity: no edema Left lower extremity: no edema Psych Appearance: grossly normal Mental Status: mental status grossly normal Speech and movement: Normal speech and movement present Affect: normal affect Attitude: cooperative Thought process: Normal thought process present Thought content: Normal thought content present Insight: Good insight present (Psych) Judgement: Good judgement present (Psych) Assessment and Plan Assessment & Plan (1) Hypertension: Code(s): I10 - Essential (primary) hypertension Qualifiers: Hypertension type: essential hypertension Qualified Code(s): I10 - Essential (primary) hypertension Plan: Labs ordered, continue current meds, cont following up with cardiology Plan The patient agreed to the use of a spanish medical interpreter for this encounter. Scribed for ABDULAZIZ Rod-EZRA by Nafisa Weinstein spanish medical interpreter, on 08/03/2023 at 13:55 EST. Orders: Orders TSH reflex Free T4 Today I10 - Essential (primary) hypertension UA CC w/rflx Micro + Cult Today I10 - Essential (primary) hypertension Complete Blood Count Auto Diff Today I10 - Essential (primary) hypertension Comprehensive [place]. Panel Fast Today I10 - Essential (primary) hypertension Lipid Panel Today I10 - Essential (primary) hypertension Coding Level of Care Code Est Pt Level 3 (21505) Diagnoses Essential hypertension I10 Hypertension type: essential hypertension
== END 2023-08-03 14:10 | disposition home or self-care (01) ==
PROVIDERS: PCP Nurse Practitioner Family; Visit Provider Nurse Practitioner Family
DX: I10 Essential (primary) hypertension (principal)
CPT/HCPCS: 99213

== ENCOUNTER 2023-12-15 14:21 | Outpatient (AMB) | payer MEDICARE, SELFPAY ==
[2023-12-15 14:37] VITALS: BP 128/76; PULSE 66; TEMP 36.6; O2SAT 96
--- NOTE | 2023-12-15 14:37 | MHC.OFFWIV ---
Intake Vital Signs 12/15/23 14:37 Height 5 ft 7 in BP 128/76 Blood Pressure Location Lt brachial Position Sitting Pulse 66 Pulse Source Pulse Oximeter Temp 97.8 F Temp Source Temporal Artery Scan Pulse Oximetry (%) 96 Oxygen Delivery Method Room Air Intake Visit Reasons: EP Left Knee Pain/Dry Cough Intake Note: pt is here for left knee pain and dry cough Patient Tobacco Use Status: Never used Tobacco Allergies Codeine Allergy (Unknown, Uncoded 12/15/23 14:38) rash Do you need a note to return to daycare/school/sports/work: No HPI HPI Comments History of Present Illness Details 73 y/o male patient who presents to walk in clinic with c/o Left knee pain. Denied trauma or injury. Pt asking for Knee Xray. Pt also c/o chronic persistent dry cough x 2 weeks now. Pt is currently taking Lisinopril and HCTZ for HTN. [facility] Medical History (Updated 05/24/23 @ 12:12 by Guillermo Torres, [facility]) Fatty liver Refused influenza vaccine Refused pneumococcal vaccination Bradycardia Thrombocytopenia Dyslipidemia Hypertension Aortic stenosis Surgical History No pertinent past surgical history Family History Father AA (aortic aneurysm) Social History Housing: House Alcohol intake: current Alcohol intake frequency: a few times a week Alcohol type: beer Patient Tobacco Use Status: Never used Tobacco e-Cigarette/Vaping Use: Never Used Second Hand Smoke Exposure: No service: No Current occupational status: retired Cognitive needs: No Hearing needs: No Vision needs: No Physical Exam Vital Signs: Last Vital Signs Temp 97.8 F 12/15/23 14:37 Pulse 66 12/15/23 14:37 BP 128/76 12/15/23 14:37 Pulse Ox 96 12/15/23 14:37 Oxygen Delivery Method Room Air 12/15/23 14:37 Const General: comfortable and no acute distress Nutritional Appearance: obese Orientation/consciousness: patient oriented x3 Neuro General: patient oriented x3, gait normal and moves all extremities Extrem Right lower extremity: normal to inspection and full ROM Left lower extremity: knee Details: tenderness Location: of the medial joint line and of the pre-patellar area and normal ROM; no swelling, no ecchymosis, no crepitus, no deformity and no unusual warmth Psych Speech and movement: Normal speech and movement present Assessment & Plan Assessment & Plan (1) Left medial knee pain: Code(s): M25.562 - Pain in left knee Plan: - Provided Knee Brace - Ordered Xray of knee - Ordered Knee Xray. (2) Cough in adult: Code(s): R05.9 - Cough, unspecified Plan: Joni Lisinopril Cough. Advised Pt to stop Lisinopril for 2 weeks and see if Cough goes away. Pt to double The HCTZ dose to 25 mg (take 2 Tabs now). Will have Pt f/u in 2 weeks for BP check. Will also add Decongestant medications like Zrytec and Flonase. Orders: Orders PT Evaluation and Treatment Today M25.562 - Pain in left knee Medications: New cetirizine (Zyrtec) 10 mg PO DAILY PRN 90 tabs 0RF allergy symptoms R05.9 - Cough, unspecified fluticasone propionate 50 mcg/actuation (Flonase Allergy Relief) administer into each nostril 1 spray intranasal BID 16 grams 0RF R05.9 - Cough, unspecified Refilled hydrochlorothiazide 12.5 mg PO DAILY 30 tabs 0RF I10 - Essential (primary) hypertension Coding Level of Care Code Est Pt Level 4 (01425) Diagnoses Left medial knee pain M25.562 Cough in adult R05.9 Time Spent (min) 20
== END 2023-12-15 16:09 | disposition home or self-care (01) ==
PROVIDERS: PCP Nurse Practitioner Family; Visit Provider Nurse Practitioner Family
DX: M25.562 Pain in left knee (principal); R05.9 Cough, unspecified
CPT/HCPCS: 99214

== ENCOUNTER 2023-12-15 15:05 | Outpatient (REF) | payer MEDICARE, SELFPAY ==
--- NOTE | ~2023-12-15 | XR_ITS ---
EXAMINATION: XR KNEE, LEFT CLINICAL INFORMATION: Knee pain for 2 weeks COMPARISON: None available. TECHNIQUE: Four views of the left knee. FINDINGS: No fracture or joint effusion. Mild prepatellar soft tissue swelling is seen. There is a patellar spur present at the insertion of the quadriceps tendon. Alignment is anatomic. Joint spaces are maintained. No abnormal soft tissue calcification. XR/XR knee LT 4V IMPRESSION: 1. No acute fracture or dislocation. 2. Mild prepatellar soft tissue swelling.
== END 2023-12-15 15:06 | disposition home or self-care (01) ==
LOC: HO.HMGCX 15:05
PROVIDERS: PCP Nurse Practitioner Family; Visit Provider Nurse Practitioner Family
DX: M25.562 Pain in left knee (principal)
CPT/HCPCS: 73564

== ENCOUNTER 2024-02-08 08:32 | Outpatient (REF) | payer MEDICARE, SELFPAY ==
--- NOTE | ~2024-02-08 | XR_ITS ---
EXAMINATION: XR KNEE, RIGHT XR KNEE, LEFT CLINICAL INFORMATION: Pain. COMPARISON: Right knee 02/17/2021. TECHNIQUE: AP standing view of bilateral knees. [place] view of the left knee. FINDINGS: LEFT KNEE: Mild narrowing of the medial compartment with small marginal osteophytes. RIGHT KNEE: Minimal narrowing of the medial compartment. Minimal lateral marginal osteophytes. 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 Electronically signed by: Maeve Quiroga MD 03/06/2024 10:35 AM EDT
--- NOTE | ~2024-02-08 | XR_ITS ---
EXAMINATION: XR KNEE, RIGHT XR KNEE, LEFT CLINICAL INFORMATION: Pain. COMPARISON: Right knee 02/17/2021. TECHNIQUE: AP standing view of bilateral knees. [place] view of the left knee. FINDINGS: LEFT KNEE: Mild narrowing of the medial compartment with small marginal osteophytes. RIGHT KNEE: Minimal narrowing of the medial compartment. Minimal lateral marginal osteophytes. 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 Electronically signed by: Maeve Quiroga MD 03/06/2024 10:35 AM EDT
== END 2024-02-08 08:33 | disposition home or self-care (01) ==
LOC: HO.HOSX 08:32
PROVIDERS: PCP Nurse Practitioner Family; Visit Provider Physician Assistant
DX: M25.562 Pain in left knee (principal); M25.561 Pain in right knee
CPT/HCPCS: 73560; 99202

== ENCOUNTER 2024-02-08 09:57 | Outpatient (AMB) | payer MEDICARE, SELFPAY ==
--- NOTE | 2024-02-08 10:06 | MHC.OFFVIS ---
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 Patient reports his pain presented after he walked barefoot on a beach on 10/05/23. He was seen by PT and was told that it could be a hamstring problem. He has had improvement with attending PT however he continues to have discomfort at the medial aspect of knee with a tingling sensation that mostly comes at night. Allergies Codeine Allergy (Unknown, Uncoded 02/08/24 10:15) rash Medication List - Last Reconciled 02/08/24 by Carol Cadena PA-C atorvastatin 80 mg PO BEDTIME 90 days blood pressure monitor As directed cetirizine (Zyrtec) 10 mg PO DAILY PRN CPAP CPAP supplies-mask, tubing, filters & headgear. 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 He was seen by his PCP as well as by physical therapy which provided him relief however, he continues to have discomfort at the medial aspect of his knee. He rates the pain as 11 on the scale of 0-10. His pain is aggravated in the morning and alleviates throughout the day. He also experiences a tingling sensation that mostly comes at night. [facility] Medical History (Updated 02/08/24 @ 10:50 by Carol Cadena PA-C) Fatty liver Refused influenza vaccine Refused pneumococcal vaccination Bradycardia Thrombocytopenia Dyslipidemia Hypertension Aortic stenosis Surgical History No pertinent past surgical history Family History Father AA (aortic aneurysm) Social History Housing: House Alcohol intake: current Alcohol intake frequency: a few times a week Alcohol type: beer Patient Tobacco Use Status: Never used Tobacco e-Cigarette/Vaping Use: Never Used Second Hand Smoke Exposure: No service: No Current occupational status: retired Cognitive needs: No Hearing needs: No Vision needs: No Review of Systems Const All systems reviewed & are unremarkable except as noted in HPI and below Physical Exam Const General: cooperative, healthy appearing, comfortable, no acute distress, well developed and alert Orientation/consciousness: patient oriented x3 HEENT Head: Yes normal to inspection, Yes normocephalic and Yes atraumatic Eyes General: appearance normal, both eyes and all related structures Resp Effort & Inspection: normal respiratory effort and able to speak in complete sentences Cardio Rate: regular rate Peripheral pulses: Peripheral pulses 2+ throughout GI Palpation (GI): Soft to palpation Skin Lesions: no lesions Rashes: no rashes Neuro General: patient oriented x3 Extrem Other: Left knee: Skin intact, no erythema or joint effusion. No tenderness along the medial or lateral. Full ROM with crepitus. Negative Nasrin?s. No ligamentous laxity. NVI. Results Reviewed Results Reviewed: Xrays were obtained in the office today and personally reviewed by me of the left knee show mild pf oa Assessment & Plan Assessment & Plan (1) Patellofemoral arthralgia of left knee: Code(s): M25.562 - Pain in left knee Category: Medical Plan Patient is overall doing well and has no complains this time. We will continue with physical therapy. He will continue activities modifications as needed. If symptoms persist or worsen, patient will contact the office, otherwise follow-up as needed. Orders: Orders XR knee RT 1V Today M25.561 - Pain in right knee XR knee LT 2V Today M25.562 - Pain in left knee Patient Instructions: Scribed for Carol Cadena PA-C, by Troy Norman medical radiation therapist, on 02/08/2024 at 10:00 AM EST.? I, Carol Cadena PA-C, have personally reviewed and agree with the information entered by the scribe. Coding Level of Care Code New Pt Level 3 (61158) Diagnoses Patellofemoral arthralgia of left knee M25.562
== END 2024-02-08 10:50 | disposition home or self-care (01) ==
PROVIDERS: PCP Nurse Practitioner Family; Visit Provider Physician Assistant
DX: M25.562 Pain in left knee (principal)
CPT/HCPCS: 99203

== ENCOUNTER 2024-02-22 09:03 | Outpatient (AMB) | payer MEDICARE, SELFPAY ==
--- NOTE | 2024-02-22 09:12 | MHC.OFFVIS ---
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 Use at bedtime ergocalciferol (vitamin D2) 1,250 mcg PO QWEEK 90 days ezetimibe 10 mg PO DAILY fluticasone propionate 50 mcg/actuation (Flonase Allergy Relief) 1 spray intranasal BID hydrochlorothiazide 12.5 mg PO DAILY 90 days lisinopril 10 mg PO DAILY HPI Comments Details: Pleasant 73-year-old gentleman here for follow-up. He was seen 2018 when he underwent echocardiography which showed moderate aortic valve stenosis. 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 Repeat echocardiogram showed [id number] aortic stenosis. Echocardiography in January 2021 is showing similar findings of mild to moderate aortic valve stenosis. Clinically has no chest discomfort shortness of breath. Recent echocardiography has shown moderate aortic valve stenosis. He returns for follow-up and continues to be clinically stable. He is noticed to be bradycardic with sinus bradycardia with some junctional beats in between. He is denying any dizziness or lightheadedness. No history of syncope. 02/16/2023: He returns for follow-up. He has some blood workup showing elevated liver enzymes and has been undergoing further workup. From cardiovascular point of view, he has been stable. Denying any chest discomfort, shortness of breath or syncope. Blood pressure control is reasonable. He has chronic bradycardia. Previous Holter monitoring did not show any advanced heart block or concerning bradycardia during awake hours. 02/22/2024: He is here for follow-up. No new symptoms over the last year. Last echocardiography was in 03/16/2023 which showed moderate aortic valve stenosis. Blood pressure is well controlled. He continues to be bradycardic as before. [facility] Medical History (Updated 02/22/24 @ 09:32 by Maykel Hernández MD) Fatty liver Refused influenza vaccine Refused pneumococcal vaccination Bradycardia Thrombocytopenia Dyslipidemia Hypertension Aortic stenosis Surgical History No pertinent past surgical history Family History Father AA (aortic aneurysm) Social History Housing: House Alcohol intake: current Alcohol intake frequency: a few times a week Alcohol type: beer Patient Tobacco Use Status: Never used Tobacco e-Cigarette/Vaping Use: Never Used Second Hand Smoke Exposure: No service: No Current occupational status: retired Cognitive needs: No Hearing needs: No Vision needs: No Review of Systems Const Denies chills, Denies fatigue, Denies fever(s), Denies frequent falls, Denies weakness, Denies weight gain and Denies weight loss ENT Denies dizziness Card Denies chest pain, Denies leg edema, Denies lightheadedness, Denies palpitations, Denies dyspnea and Denies dyspnea on exertion Resp Denies cough, Denies dyspnea and Denies dyspnea on exertion GI Denies hematochezia Musc Denies abnormal gait, Denies muscle weakness, Denies numbness, Denies radiating pain into limb and Denies tingling Neuro Denies abnormal gait, Denies dizziness, Denies frequent falls, Denies numbness, Denies tingling and Denies weakness Endo Denies fatigue and Denies palpitations Physical Exam Vital Signs: Last Vital Signs Pulse 49 L 02/22/24 09:13 BP 110/64 02/22/24 09:13 BMI result Body Mass Index 36.7 GENERAL APPEARANCE: in no acute distress, overweight. NECK/THYROID: no carotid bruit, no jugular venous distention. murmur radiating to the carotids. SKIN: no suspicious lesions, warm and dry. HEART: Ejection systolic murmur in the aortic area with preserved 2nd heart sound. Bradycardic. LUNGS: clear to auscultation bilaterally. ABDOMEN: normal, bowel sounds present, soft, nontender, nondistended. EXTREMITIES: no clubbing, cyanosis, or edema. PERIPHERAL PULSES: equal. NEUROLOGIC: nonfocal, alert and oriented. Office Procedures EKG Details: Sinus bradycardia 50 beats per minute, leftward axis, premature ventricular complexes, poor R-wave progression, QTC 419 milliseconds. [id number], Complete Assessment & Plan Assessment & Plan (1) Aortic stenosis: Code(s): I35.0 - Nonrheumatic aortic (valve) stenosis Category: Medical Qualifiers: Cardiac valve disease etiology: nonrheumatic Qualified Code(s): I35.0 - Nonrheumatic aortic (valve) stenosis (2) Hypertension: Code(s): I10 - Essential (primary) hypertension Category: Medical Qualifiers: Hypertension type: essential hypertension Qualified Code(s): I10 - Essential (primary) hypertension (3) Sinus bradycardia: Code(s): R00.1 - Bradycardia, unspecified Category: Medical Plan Pleasant 73-year-old gentleman who is here for follow-up. He has background history of hypertension, hyperlipidemia and moderate aortic valve stenosis. Blood pressure control is good currently. Continue same medications for now. By exam he has moderate . We will repeat echocardiography in March or April time. I explained to him that aortic valve stenosis can cause chest discomfort, shortness of breath and/or syncope as common symptoms and if he develops any of these symptoms during the 1 year follow-up period then he will reach out to us. Thank you for allowing me to participate in the care of your patient. Please feel free to contact me if you have any questions. Orders: Orders CA echo transthoracic complete Today I35.0 - Nonrheumatic aortic (valve) stenosis Coding Level of Care Code Est Pt Level 4 (79073) Diagnoses Nonrheumatic aortic valve stenosis I35.0 Cardiac valve disease etiology: nonrheumatic Essential hypertension I10 Hypertension type: essential hypertension Sinus bradycardia R00.1 CPT Codes EKG - CPT: 04680-[id number], Complete ([id number])
[2024-02-22 09:13] VITALS: BP 110/64; PULSE 49; BMI 36.7
== END 2024-02-22 09:33 | disposition home or self-care (01) ==
PROVIDERS: PCP Nurse Practitioner Family; Visit Provider Internal Medicine Cardiovascular Disease
DX: I35.0 Nonrheumatic aortic (valve) stenosis (principal); I10 Essential (primary) hypertension; R00.1 Bradycardia, unspecified
CPT/HCPCS: 93010; 99214

== ENCOUNTER → 2024-02-22 09:03 | Outpatient (BNVA) | payer MEDICARE, SELFPAY | PROVIDERS: PCP Nurse Practitioner Family; Visit Provider Internal Medicine Cardiovascular Disease | DX: I35.0 Nonrheumatic aortic (valve) stenosis (principal); I10 Essential (primary) hypertension; R00.1 Bradycardia, unspecified | CPT/HCPCS: 93005; 99212 ==

== ENCOUNTER 2024-03-07 16:00 | Outpatient (RCR) | payer MEDICARE, SELFPAY ==
--- NOTE | 2024-01-20 09:45 | MHC.PT.EP ---
[facility] [place] Office [place] Office [place] Office [address] Sharon Edwards [address] [phone] F: [phone] F: [phone] F: [phone] F: [phone] Physical Therapy Plan of Care Date of Evaluation: 01/20/24 Date of Surgery: n/a Diagnosis: L medial knee pain Assessment: Patient is a 73 year old male presenting to PT with complaints of pain in his L knee. Pt reports onset of pain began 10/05/2023 due to walking on the beach with no shoes. He presents today with impairments in pain, ROM, hip strength, hs tenderness. 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 Pt expresses intermediate frame tender goal of reducing pain, and is motivated to work towards this in PT. Clinical presentation today is most consistent with signs and sx associated with L medial knee pain and pt will benefit from skilled PT 2 week x 4 weeks to address the following problems and impairments noted upon evaluation: pain, ROM, knee strength, hip strength, hs tenderness. These problems limit the patient with the following functional activities: sleeping, ADLs, household worker. The prescribed treatment plan of care is medically necessary. Co-morbidities of HTN were identified and taken into considerations of plan of care. Pt was educated on HEP, role of PT, prognosis, POC. Frequency and Duration: The patient will be seen 2 x week x 4 weeks Short Term Goals: Pt will demonstrate improved hip MMT strength by 1/3 grade in 2 weeks for improved lumbopelvic stability. Pt will demonstrate less tenderness with palpation to hs and tendons in 2 weeks. Pt will demonstrate symmetrical knee flexion ROM in 2 weeks. Insurance Sales Associate Goals: Pt will demonstrate ability to sleep through the night with min to no pain in 4 weeks for return to PLOF. Pt will demonstrate ability to ambulate and complete household worker with min to no pain in 4 weeks for return to PLOF. Treatment Plan: Modalities to reduce pain, spasms and effusion. Manual therapy to restore motion and function. Therapeutic exercise to improve strength and flexibility. Neuromuscular re-education for posture and balance. Therapeutic activities to return to functional activities of daily living. Electronically signed by: Rosanna Mcmillan, PT, DPT, ATC Please sign and return to therapist. Thank you for your referral.
--- NOTE | 2024-03-07 16:46 | MHC.PT.DC ---
[facility] [place] Office [place] Office [place] Office [address] [phone] F: [phone] F: [phone] F: [phone] F: [phone] Physical Therapy Discharge Report Diagnosis: L medial knee pain Date of Surgery: n/a Date of Evaluation: 01/20/24 Date of Discharge: 03/07/24 Treatments to Date: 8 Cancellations to Date: 4 No Shows to Date: 0 Discharge Status: Improved Function Discharge Summary: 03/07/2024: Pt reports his pain has improved since start of care. He has had fair compliance with HEP throughout. At this time max benefits of PT have been provided and skilled PT is no longer indicated, therefore pt to be d/c today. He would benefit from more consistency with his HEP for max benefits of strength. He is in agreement with d/c today. Electronically signed by: Rosanna Mcmillan, PT, DPT, ATC Please sign and return to therapist. Thank you for your referral.
== END 2024-03-07 16:46 | disposition home or self-care (01) ==
LOC: HO.PTCHIC 16:00
PROVIDERS: PCP Nurse Practitioner Family; Visit Provider Nurse Practitioner Family
DX: M25.562 Pain in left knee (principal)
CPT/HCPCS: 97110; 97161

== ENCOUNTER 2024-03-09 13:31 | Outpatient (REF) | payer MEDICARE, SELFPAY ==
[2024-03-09 16:05] LABS: MANUAL DIFF FLAG NO
[2024-03-09 16:07] LABS: Appearance Urine Clear; Color Urine Yellow; Glucose Urine UA Negative (Negative); Leukocyte Esterase Urine Negative (Negative); Nitrite Urine Negative (Negative); PH 8.5 (5.0-9.0); Specific Gravity - Urine 1.015 (1.005-1.025); Urine Blood Negative (Negative); Urine Ketones Negative (Negative); Urine Protein Negative (Neg-Trace)
[2024-03-09 16:11] LABS: Basophils Absolute Auto 0.1 X10*3/uL (0.0-0.2); Basophils Percent Auto 0.7 % (0-2); Eosinophils Absolute Auto 0.2 X10*3/uL (0.0-0.4); Eosinophils Percent Auto 2.6 % (0-4); Hematocrit 43.3 % (42.0-52.0); Hemoglobin 14.8 g/dl (14.0-18.0); Imm Gran Abs Auto 0.01 X10*3/uL (0.00-0.03); Imm Gran Pct Auto 0.1 % (0.0-0.4); Lymphocytes Percent Auto 25.2 % (20-40); Mean Corpuscular HGB Conc 34.2 g/dl (31.0-36.0); Mean Corpuscular Volume 90.6 fL (80.0-98.0); Mean Platelet Volume 11.5 fL (9.4-12.4); Monocytes Absolute Auto 0.6 X10*3/uL (0.1-1.2); Monocytes Percent Auto 7.2 % (2-11); Neutrophils Absolute Auto 5.2 x10*3/uL (2.0-8.3); Neutrophils Percent Auto 64.2 % (45-73); Platelet Count 184 X10*3/uL (160-400); Red Blood Count 4.78 X10*6/uL (4.60-5.80); Red Cell Distribution Width 12.7 % (11.0-16.0)
[2024-03-09 17:55] LABS: Alanine Aminotransferase 32 U/L (0-40); Albumin Level 4.2 g/dL (3.5-5.0); Alkaline Phosphatase 75 U/L (39-117); Anion Gap 13 (12-20); Aspartate Amino Transferase 23 U/L (5-37); Bilirubin Total 1.3 mg/dL (0.0-1.0); Blood Urea Nitrogen 14 mg/dL (9-16); Calcium 9.9 mg/dL (8.4-10.2); Carbon Dioxide 27 mmol/L (22-29); Chloride 105 mmol/L (96-108); Cholesterol 151 mg/dL (<200); Estimated Glomerular Filt Rate > 60; Glucose Fasting 85 mg/dL (60-99); HDL Cholesterol 39 mg/dL (>40); LDL Cholesterol Calculated 87 mg/dL (<100); Potassium 4.5 mmol/L (3.3-5.1); Sodium 140 mmol/L (135-145); Total Protein 7.2 g/dL (6.5-8.0); Triglycerides 125 mg/dL (<150)
[2024-03-09 18:05] LABS: TSH reflex Free T4 0.85 uIU/mL (0.32-4.0)
== END 2024-03-09 13:32 | disposition home or self-care (01) ==
LOC: HO.HMGCLDS 13:31
PROVIDERS: PCP Nurse Practitioner Family; Visit Provider Nurse Practitioner Family
DX: I10 Essential (primary) hypertension (principal)
CPT/HCPCS: 36415; 80053; 80061; 81003; 84443; 85025

== ENCOUNTER 2024-03-12 12:18 | Outpatient (AMB) | payer MEDICARE, SELFPAY ==
[2024-03-12 12:31] VITALS: BP 116/72; PULSE 47; O2SAT 96; BMI 37.1
--- NOTE | 2024-03-12 12:31 | MHC.PC.OV ---
Vital Signs 03/12/24 12:31 Height 5 ft 7 in Weight 237 lb 2 oz BMI 37.1 BP 116/72 Blood Pressure Location Lt brachial Position Sitting Pulse 47 L Pulse Source Pulse Oximeter Pulse Oximetry (%) 96 Oxygen Delivery Method Room Air Intake Visit Reasons: HTN Allergies Codeine Allergy (Unknown, Uncoded 05/16/24 18:42) rash Medication List - Last Reconciled 05/16/24 by DEBORAH Ortiz atorvastatin 80 mg PO BEDTIME 90 days cetirizine (Zyrtec) 10 mg PO DAILY PRN CPAP CPAP supplies-mask, tubing, filters & headgear. Use at bedtime ergocalciferol (vitamin D2) 1,250 mcg PO QWEEK 90 days ezetimibe 10 mg PO DAILY hydrochlorothiazide 12.5 mg PO DAILY 90 days lisinopril 10 mg PO DAILY Tobacco use date assessed: 03/12/24 Fall risk assessment: No Falls in past year Last assessed Fall Risk: 03/12/24 Dental Screening Dental Screen Date: 03/12/24 Did you have a dental visit in the last 12 months?: Yes Did you have a dental problem in the last 6 months where you did not have access to dental care?: No Was dental information given to patient?: Patient has dentist HPI HPI Comments History of Present Illness Details HTN: Stable on current medications. Denies any cp, sob, dizziness, CURTIS, and blurred vision. Pt does follow up with cardiology [facility] Medical History Fatty liver Refused influenza vaccine Refused pneumococcal vaccination Bradycardia Thrombocytopenia Dyslipidemia Hypertension Aortic stenosis Surgical History No pertinent past surgical history Family History Father AA (aortic aneurysm) Social History Housing: House Alcohol intake: current Alcohol intake frequency: a few times a week Alcohol type: beer Patient Tobacco Use Status: Never used Tobacco e-Cigarette/Vaping Use: Never Used Second Hand Smoke Exposure: No service: No Current occupational status: retired Cognitive needs: No Hearing needs: No Vision needs: No Questionnaire PHQ-9 Over the last 2 weeks, how often have you been bothered by any of the following problems? 1. Little interest or pleasure in doing things: not at all 2. Feeling down, depressed, or hopeless: not at all 3. Trouble falling or staying asleep, or sleeping too much: not at all 4. Feeling tired or having little energy: not at all 5. Poor appetite or overeating: not at all 6. Feeling bad about yourself - or that you are a failure or have let yourself or your family down: not at all 7. Trouble concentrating on things, such as reading the newspaper or watching television: not at all 8. Moving or speaking so slowly that other people could have noticed. Or the opposite - being so fidgety or restless that you have been moving around a lot more than usual: not at all 9. Thoughts that you would be better off or of hurting yourself in some way: not at all Total score: 0 Depression Screening Interpretation: Negative Depression Screening Done: Yes 88695 - PHQ-9 Billing: Yes Source: Developed by Drs. Homar Galvan, Ramya Guzman, Neil Wu and colleagues, with an educational scott from [employer]. Thrive Questionnaire Date Thrive assessed: 03/12/24 I am a: Patient What is your living situation today?: I have a steady place to live Within the past 12 months, did the food you bought not last and you didn't have the money to get more?: Never true Within the past 12 months, did you worry whether your food would run out before you got money to buy more?: Never true Do you have trouble paying for medicines?: No Do you have trouble getting transportation to medical appointments?: No Do you have trouble paying your heating and electricity bill?: No Do you have trouble taking care of your child, family member or friend?: No Do you have trouble with day-to-day activities such as bathing, preparing meals, shopping, managing finances, etc.?: No Are you currently unemployed and looking for a job?: No Are you interested in more education?: No Please select the resources that you would like help with: None Currently or been in a relationship where the following occur: No concerns reported THRIVE Score: 0 AUDIT C Alcohol Use Questionnaire (AUDIT-C) 1. How often do you have a drink containing alcohol?: 2-3 times a week 2. How many drinks containing alcohol do you have on a typical day when you are drinking?: 1 or 2 3. How often do you have six or more drinks on one occasion?: Never Total Score: 3 Score Reviewed/Action Taken: Yes MOHIT-7 AMB Questionnaire MOHIT-7 Date MOHIT - 7 assessed: 08/03/23 Source: Developed by Drs. Homar Galvan, Ramya Guzman, Neil Wu and colleagues, with an educational scott from [employer]. Review of Systems Const Denies chills and Denies fever(s) Eyes Denies blurry vision ENT Denies vertigo, Denies dizziness and Denies sore throat Card Denies chest pain at rest, Denies chest pain with activity, Denies diaphoresis, Denies dyspnea and Denies dyspnea on exertion Resp Denies cough, Denies dyspnea, Denies dyspnea on exertion and Denies wheezing GI Denies abdominal pain, Denies melena, Denies hematochezia, Denies constipation, Denies diarrhea and Denies loose stools Denies hematuria Musc Denies numbness and Denies tingling Skin/Breast Denies lesions Neuro Denies vertigo, Denies dizziness, Denies numbness and Denies tingling Psych Denies anxiety, Denies depression, Denies homicidal ideation, Denies suicidal ideation and Denies other (substance abuse) Aller/Immun Denies wheezing Physical exam (Primary Care) Vital Signs: Last Vital Signs Pulse 47 L 03/12/24 12:31 BP 116/72 03/12/24 12:31 Pulse Ox 96 03/12/24 12:31 Oxygen Delivery Method Room Air 03/12/24 12:31 BMI result Body Mass Index 37.1 Tobacco/Smoking Status: Tobacco use Status Tobacco use date assessed 03/12/24 03/12/24 12:37 Patient Tobacco Use Status Never used Tobacco 03/12/24 12:34 e-Cigarette/Vaping Use Never Used 03/12/24 12:34 PHQ-9: PHQ-9 Score PHQ-9: Total score 0 03/12/24 13:03 Depression Screening Interpretation: Negative Thrive Assessment: Date of Thrive Assessment Date Thrive assessed 03/12/24 03/12/24 12:34 Currently or been in a relationship where the following occur: No concerns reported Const General: cooperative Nutritional Appearance: well nourished and obese Orientation/consciousness: patient oriented x3 [facility] Head: Yes normal to inspection, Yes normocephalic and Yes atraumatic Ears: TM's normal bilaterally Eyes General: appearance normal, both eyes and all related structures Alignment and Position: alignment normal and position normal Neck Neck: Yes normal visual inspection, Yes no lymphadenopathy and Yes supple Resp Effort & Inspection: normal respiratory effort Auscultation: clear to auscultation bilaterally Cardio Rate: bradycardic Rhythm: regular rhythm Heart sounds: S1 normal heart sound present, S2 normal heart sound present and Murmur heart sound present systolic GI Other: small umbilical hernia Palpation (GI): Soft to palpation and nontender Auscultation: normal bowel sounds Male General Exam: Yes normal external exam Penis: normal penis Scrotum: scrotum normal, testes descended bilaterally and no inguinal hernias Testes: no testicular mass Skin Other: extensive lipomas to upper and lower extremities, especially abd region Rashes: no rashes Neuro General: patient oriented x3, moves all extremities, no focal motor deficits and deep tendon reflexes 2+ bilaterally Romberg Test: Negative Psych Appearance: grossly normal Mental Status: mental status grossly normal Speech and movement: Normal speech and movement present Affect: normal affect Attitude: cooperative Thought process: Normal thought process present Thought content: Normal thought content present Insight: Good insight present (Psych) Judgement: Good judgement present (Psych) Coding Level of Care Code Est Pt Level 3 (92386) Diagnoses Essential hypertension I10 Hypertension type: essential hypertension
== END 2024-03-12 13:00 | disposition home or self-care (01) ==
PROVIDERS: PCP Nurse Practitioner Family; Visit Provider Nurse Practitioner Family
DX: I10 Essential (primary) hypertension (principal)

== ENCOUNTER → 2024-03-12 12:18 | Outpatient (BNVA) | payer MEDICARE, SELFPAY | PROVIDERS: PCP Nurse Practitioner Family; Visit Provider Nurse Practitioner Family | DX: Z00.01 Encounter for general adult medical examination with abnormal findings (principal); R00.1 Bradycardia, unspecified | CPT/HCPCS: 99397 ==

== ENCOUNTER 2024-03-12 13:05 | Outpatient (REF) | payer MEDICARE, SELFPAY | END 2024-03-12 13:06 | disposition home or self-care (01) | LOC: HO.HMGCLDS 13:05 | PROVIDERS: PCP Nurse Practitioner Family; Visit Provider Nurse Practitioner Family | DX: Z00.00 Encounter for general adult medical examination without abnormal findings (principal); R00.1 Bradycardia, unspecified; Z12.5 Encounter for screening for malignant neoplasm of prostate | CPT/HCPCS: 36415; 84153; 96127; 99212; 99397 ==

== ENCOUNTER → 2024-03-16 07:59 | Outpatient (REF) | payer MEDICARE, SELFPAY ==
--- NOTE | 2024-03-16 08:01 | CA_ITS ---
Transthoracic Echocardiogram Patient (Last, First, Middle): Ruben Corona, Gender: Male Date of : 1950 Age: 73 Procedure Date: 03/16/2024 Procedure Type: Transthoracic Echocardiogram Location: OP Height: 170.18 cm Weight: 106.14 kg BSA: 2.16 m2 Heart Rate: 46 bpm BP: 162 / 60 mmHg Correspondence Representative: SB Referring MD: Maykel Hernández MD Sub Master: Reji Velazquez MD Symptoms: I35.0 - Nonrheumatic aortic (valve) stenosis Study Quality: Adequate ECG Rhythm: Bradycardia Conclusions: - 1. Normal LV ejection fraction 65-70% with impaired relaxation filling pattern 2. Mildly dilated left atrium 3. Moderate to severe aortic stenosis 4. Normal RV systolic pressure 5. No gross pericardial effusion Findings Left Ventricle Normal left ventricular size, thickness, and systolic function. The visually estimated ejection fraction is between 65-70%. Spectral Doppler is indicative of an impaired relaxation filling pattern. Elevated left ventricular end diastolic pressure. E/E prime ratio is between 8 and 15 consistent with indeterminate filling pressures. There is mild septal asymmetric hypertrophy. Right Ventricle Normal right ventricular cavity size and systolic function. Atria The left atrium is mildly dilated. There is no evidence of interatrial shunt. The right atrium is normal in size. Aortic Valve The aortic valve was not well visualized. There is moderate calcification of the aortic valve. There is moderate to severe aortic valve stenosis. The peak aortic gradient is 65 mmHg.The mean gradient is 33 mmHg. The aortic valve area is 1.08 cm2. There is no aortic valve regurgitation. Mitral Valve There is mild anterior mitral leaflet thickening. There is trace mitral valve regurgitation. There is no mitral valve stenosis. Pulmonic Valve The pulmonic valve is likely normal. Tricuspid Valve Likely normal tricuspid valve structure and function. There is trace tricuspid valve regurgitation. The right ventricular systolic pressure is normal. The right ventricular systolic pressure is 23 mmHg. Normal right atrial pressure. There is no evidence of pulmonary hypertension. Great Vessels The aorta was not well visualized. The pulmonary artery was not well visualized. There is no dilatation of the ascending aorta measuring 3.30 cm. Venous The inferior vena cava is normal in size and collapses greater than 50% with inspiration. Pericardium/Pleural There is no evidence of pericardial effusion. Prior Study Comparison Changes noted compared to prior study dated: 03/16/2023. Aortic stenosis severity has progressed Measurements 2D Linear Measurements IVSd: 1.24 0.6-0.9/0.6-1.0 cm LVIDd: 5.47 3.9-5.3/4.2-5.9 cm LVIDd Index: 2.53 2.4-3.2/2.2-3.1 cm/m2 LVIDs: 3.05 2.0-3.6 cm LVPWd: 0.88 0.7-1.1 cm LA Diam: 4.90 2.7-3.8/3.0-4.0 cm LAIDs Index: 2.27 1.5-2.3 cm/m2 LV Mass: 284.88 67-162/88-224 g LV Mass Index: 131.89 43-95/49-115 g/m2 LVOT Diam: 2.30 3.0+(-)1.3 cm 2D Systolic Function EF 4C: 65.60 >55% EF 2C: 69.50 >55% EF BiP: 67.70 >55% Mitral Valve MV Pk E: 0.75 MV PK A: 0.97 MV Decel Time: 259.00 E/A: 0.80 E'Lateral: 7.51 E'Medial: 7.18 E/E' Med: 10.40 E/E' Lat: 10.00 PHT: 76.00 MVA PHT: 2.89 Decel [place]: 2.89 Aortic Valve AoV Pk Mendel: 4.02 AoV Mn Mendel: 2.62 AoV VTI: 0.89 AoV Pk Grad: 65.00 Aov Mn Grad: 33.00 JOSE MARIA Cont.VTI: 1.08 LVOT LVOT Pk Mendel: 0.98 LVOT Mn Mendel: 0.69 LVOT VTI: 0.23 LVOT Pk Grad: 4.00 LVOT Mn Grad: 2.00 LVOT Diam: 2.30 LVOT Area: 4.15 Diastolic Function MV Pk E: 0.75 MV Pk A: 0.97 E/A: 0.80 E'Medial: 7.18 E/E' Med: 10.40 E' Laterial: 7.51 E/E' Lat: 10.00 Right Ventricle TAPSE (mm): 35.50 TVS' Mendel: 14.30 Tricuspid Valve TR Pk Mendel: 2.24 TR Pk Grad: 20.00 RA Press: 3.00 RVSP: 23.00 Great Vessels Aorta Sinus of Valsalva: 3.20 2.0-3.5 cm Ao Asc: 3.30 2.1-3.4 cm Pulmonary Valve PV Pk Mendel: 1.26 Peak PV Grad: 6.00 Updated in Other Vendor System with Status of Final Reji Velazquez MD electronically signed on 03/16/2024 2:25:31 PM with status of Final
== END ==
LOC: HO.CARD 07:59
PROVIDERS: PCP Nurse Practitioner Family; Visit Provider Internal Medicine Cardiovascular Disease
DX: I35.0 Nonrheumatic aortic (valve) stenosis (principal)
CPT/HCPCS: 93306

== ENCOUNTER → 2024-03-16 08:01 | Outpatient (BNV) | payer MEDICARE, SELFPAY | PROVIDERS: PCP Nurse Practitioner Family; Visit Provider Internal Medicine Cardiovascular Disease | DX: I35.0 Nonrheumatic aortic (valve) stenosis (principal); I42.2 Other hypertrophic cardiomyopathy | CPT/HCPCS: 93306 ==

== ENCOUNTER 2024-05-07 07:52 | Outpatient (AMB) | payer MEDICARE, SELFPAY ==
--- NOTE | 2024-05-07 08:25 | A.OFFVIS_ITS ---
Intake Visit Reasons: increasing PSA Intake Note: New Patient presents for initial visit for increasing psa Urology Medications: none Blood Thinner: none Veneer Stacker Required: No Accompanied by: Self / Same As Patient Allergies Codeine Allergy (Unknown, Uncoded 05/07/24 08:51) rash Medication List - Last Reconciled 05/07/24 by DEBORAH Bedoya atorvastatin 80 mg PO BEDTIME 90 days cetirizine (Zyrtec) 10 mg PO DAILY PRN CPAP CPAP supplies-mask, tubing, filters & headgear. Use at bedtime ergocalciferol (vitamin D2) 1,250 mcg PO QWEEK 90 days ezetimibe 10 mg PO DAILY hydrochlorothiazide 12.5 mg PO DAILY 90 days lisinopril 10 mg PO DAILY HPI Comments Details: Ruben Chavez is a very pleasant 73-year-old male patient of Dr. Argueta. He has a past medical history of fatty liver, thrombocytopenia, dyslipidemia, hypertension, and aortic stenosis. He pesents to the office today as a new patient for elevation in PSA. In discussion with the patient today he reports to be doing and feeling well. He discusses his ongoing issues with his insurance company and billing and his frustration regarding these issues. When asked he denies any known family history of prostate cancer. He does report noting episodes of urinary frequency however relates this to his water pill he otherwise denies any bothersome urinary issues. When asked he does report having had BAKARI with PCP in no abnormalities were noted. In office urinalysis results reviewed with the patient today. We discussed at length potential causes of increase in PSA. PSAs are as follows: PSAs: 08/18 2.4, 01/16 1.9, 03/20 3.0 When asked he denies urinary urgency, incontinence, nocturia, hematuria, dysuria, foul smelling urine, changes to urinary stream, flank pain, fever, and or chills. He is happy with his current voiding parameters. We discussed redraw of PSA with no sex the night before, no caffeine morning of, and no heavy lifting 1-2 days prior. We also discussed obtaining retroperitoneal ultrasound for further assessment evaluation. He otherwise offers no other issues or concerns at this time. [facility] Medical History Fatty liver Refused influenza vaccine Refused pneumococcal vaccination Bradycardia Thrombocytopenia Dyslipidemia Hypertension Aortic stenosis Surgical History No pertinent past surgical history Family History Father AA (aortic aneurysm) Social History Housing: House Alcohol intake: current Alcohol intake frequency: a few times a week Alcohol type: beer Patient Tobacco Use Status: Never used Tobacco e-Cigarette/Vaping Use: Never Used Second Hand Smoke Exposure: No service: No Current occupational status: retired Cognitive needs: No Hearing needs: No Vision needs: No Review of Systems Const All systems reviewed & are unremarkable except as noted in HPI and below Physical Exam Const General: cooperative, healthy appearing, comfortable, no acute distress, well developed, alert and awake Nutritional Appearance: overweight Orientation/consciousness: patient oriented x3 Limitations: no limitations HEENT Head: Yes normal to inspection, Yes normocephalic and Yes atraumatic Ears: hearing grossly normal bilaterally Eyes General: appearance normal, both eyes and all related structures Neck Neck: Yes normal visual inspection and Yes trachea midline Chest Chest palpation & inspection: normal inspection of the chest Resp Effort & Inspection: normal respiratory effort and able to speak in complete sentences Cardio Rate: regular rate GI Inspection: Yes normal to inspection General: Yes no CVA tenderness Back/Spine/Pelvis Back: no CVA tenderness Skin General skin exam: no rashes or lesions noted Neuro General: patient oriented x3 Extrem General: Yes normal to inspection Psych Appearance: grossly normal and well kempt Mental Status: mental status grossly normal Speech and movement: Normal speech and movement present and Clear speech present Affect: normal affect Attitude: cooperative Thought process: Normal thought process present Thought content: Normal thought content present Insight: Fair insight present (Psych) Judgement: Fair judgement present (Psych) Results AMB Urinalysis, Automated UA Leukoctes 0 Iris/uL Last Edit by Donal Hong on 05/07/24 08:46 UA Nitrite Last Edit by Donal Hong on 05/07/24 08:46 UA Urobilinogen 0.2 mg/dL Last Edit by Donal Hong on 05/07/24 08:46 UA Protein 0 mg/dL Last Edit by Doanl Hong on 05/07/24 08:46 UA pH 7.0 Last Edit by Donla Hong on 05/07/24 08:46 UA Blood 0 Denis/uL Last Edit by Donal Hong on 05/07/24 08:46 UA Specific Hudson 1.005 Last Edit by Donal Hong on 05/07/24 08:46 UA Ketone Last Edit by Donal Hong on 05/07/24 08:46 UA Bilirubin 0 mg/dL Last Edit by Donal Hong on 05/07/24 08:46 UA Glucose 0 mg/dL Last Edit by Donal Hong on 05/07/24 08:46 Results Reviewed Results Reviewed: Laboratory Last Values Urine pH (Auto) 7.0 05/07/24 08:45 Specific [place] (Auto) 1.005 05/07/24 08:45 Urine Protein (Auto) 0 mg/dL 05/07/24 08:45 Glucose (UA)(Auto) 0 mg/dL 05/07/24 08:45 Urine Blood (Auto) 0 Denis/uL 05/07/24 08:45 Urine Bilirubin (Auto) 0 mg/dL 05/07/24 08:45 Urine Urobilinogen (Auto) 0.2 mg/dL 05/07/24 08:45 Leukocyte Esterase (Auto) 0 Iris/uL 05/07/24 08:45 Assessment & Plan Assessment & Plan (1) Increased prostate specific antigen (PSA) velocity: Code(s): R97.20 - Elevated prostate specific antigen [PSA] Category: Medical Plan In office urinalysis results reviewed with the patient today; as noted above. Recent PSA results reviewed and trended with the patient today; as noted above. Patient currently denies any bothersome urinary issues or concerns. Reports be happy with current voiding parameters. We discussed at length potential causes for increase in PSA. Will obtain redraw of PSA with no sex the night before, no caffeine morning of, and no heavy lifting 1-2 days prior. Will obtain retroperitoneal ultrasound for further assessment evaluation. Follow-up in 1-3 months with imaging and lab to be completed prior; or sooner with any issues, concerns, and or questions. Orders: Orders AMB Urinalysis Automated Today Z13.9 - Encounter for screening, unspecified Prostate Specific Antigen Today R97.20 - Elevated prostate specific antigen [PSA] US retroperitoneal comp Today R35.0 - Frequency of micturition, R97.20 - Elevated prostate specific antigen [PSA] Patient Instructions: The patient had an opportunity to ask questions regarding the treatment plan. All questions were answered. Physical exam, labs, and imaging were discussed and reviewed in detail. As well as risks, benefits, and discussion of treatment choices. No major barriers to understanding were identified. The patient expressed understanding and agreement with the above treatment plan. The patient was made aware they should contact our office by phone for worsening of their current condition, the appearance of new symptoms, or with any questions or concerns. Compliance is encouraged with any medications and follow up testing that is ordered. It is a privilege to be allowed the opportunity to participate in? your urological care.? Again, if you have any questions or concerns If you have any questions or concerns please do not hesitate to contact me. The office is [phone]. This note is constructed using voice recognition software. While every effort has been made to ensure accuracy mouthpiece maker errors may have been included. Yours sincerely, DEBORAH Bedoya Coding Level of Care Code New Pt Level 3 (16982) Diagnoses Increased prostate specific antigen (PSA) velocity R97.20
== END 2024-05-07 08:53 | disposition home or self-care (01) ==
PROVIDERS: PCP Nurse Practitioner Family; Visit Provider Nurse Practitioner Family
DX: Z13.9 Encounter for screening, unspecified (principal); R97.20 Elevated prostate specific antigen [PSA]
CPT/HCPCS: 99203

== ENCOUNTER → 2024-05-07 07:52 | Outpatient (BNVA) | payer MEDICARE, SELFPAY | PROVIDERS: PCP Nurse Practitioner Family; Visit Provider Nurse Practitioner Family | DX: R97.20 Elevated prostate specific antigen [PSA] (principal) | CPT/HCPCS: 81003; 99202 ==

== ENCOUNTER 2024-05-29 08:20 | Outpatient (REF) | payer MEDICARE, SELFPAY | END 2024-05-29 08:21 | disposition home or self-care (01) | LOC: HO.HMGCX 08:20 | PROVIDERS: PCP Nurse Practitioner Family; Visit Provider Nurse Practitioner Family | DX: R97.20 Elevated prostate specific antigen [PSA] (principal); R35.0 Frequency of micturition | CPT/HCPCS: 76770 ==

== ENCOUNTER 2024-06-15 11:58 | Outpatient (REF) | payer MEDICARE, SELFPAY | END 2024-06-15 11:59 | disposition home or self-care (01) | LOC: HO.HMGCLDS 11:58 | PROVIDERS: PCP Nurse Practitioner Family; Visit Provider Nurse Practitioner Family | DX: R97.20 Elevated prostate specific antigen [PSA] (principal); Z12.5 Encounter for screening for malignant neoplasm of prostate | CPT/HCPCS: 36415; 84153 ==

== ENCOUNTER 2024-06-26 07:41 | Outpatient (AMB) | payer MEDICARE, SELFPAY ==
--- NOTE | 2024-06-26 07:50 | A.OFFVIS_ITS ---
Intake Visit Reasons: 2m/US/PSA(set) Intake Note: Patient presents today for follow up on: ultrasound and psa lab results Imaging Completed: 05/29/24 PSA: 2.0 Urology Medications: none Blood Thinner: none Oil Speculator Required: No Accompanied by: Self / Same As Patient Allergies Codeine Allergy (Unknown, Uncoded 06/26/24 08:32) rash Medication List - Last Reconciled 06/26/24 by DEBORAH Bedoya atorvastatin 80 mg PO BEDTIME cetirizine (Zyrtec) 10 mg PO DAILY PRN CPAP CPAP supplies-mask, tubing, filters & headgear. Use at bedtime ergocalciferol (vitamin D2) 1,250 mcg PO QWEEK 90 days ezetimibe 10 mg PO DAILY hydrochlorothiazide 12.5 mg PO DAILY 90 days lisinopril 10 mg PO DAILY HPI Comments Details: Ruben Chavez is a very pleasant 73-year-old male patient of Dr. Argueta. He has a past medical history of fatty liver, thrombocytopenia, dyslipidemia, hypertension, and aortic stenosis. He presents to the office today for follow-up. Of note, patient was seen approximately 6 weeks ago as a new patient for an elevated PSA at which time redraw of PSA and retroperitoneal ultrasound were ordered for further assessment evaluation. These results were reviewed with the patient today. Retroperitoneal ultrasound results remain pending however unofficial report reviewed with the patient today. Bilateral kidneys with no masses or hydronephrosis. Possible stone versus cortical calcification in the right mid pole measuring approximately 5 mm. Pre void bladder volume is approximately 490 mL. Postvoid bladder volume is approximately 170 mL. Prostate measures approximately 73 mL. PSAs are as follows and noted below. In office urinalysis results reviewed with the patient today. He does report noting episodes of urinary frequency however relates this to his water pill he otherwise denies any bothersome urinary issues. In office urinalysis results reviewed with the patient today. We discussed at length potential causes of variability and PSAs. PSAs are as follows: PSAs: 08/18 2.4, 01/16 1.9, 03/20 3.0, 06/19 2.0 When asked he denies urinary urgency, incontinence, nocturia, hematuria, dysuria, foul smelling urine, changes to urinary stream, flank pain, fever, and or chills. He is happy with his current voiding parameters. He otherwise offers no other issues or concerns at this time. [facility] Medical History Fatty liver Refused influenza vaccine Refused pneumococcal vaccination Bradycardia Thrombocytopenia Dyslipidemia Hypertension Aortic stenosis Surgical History No pertinent past surgical history Family History Father AA (aortic aneurysm) Social History Housing: House Alcohol intake: current Alcohol intake frequency: a few times a week Alcohol type: beer Patient Tobacco Use Status: Never used Tobacco e-Cigarette/Vaping Use: Never Used Second Hand Smoke Exposure: No service: No Current occupational status: retired Cognitive needs: No Hearing needs: No Vision needs: No Review of Systems Const All systems reviewed & are unremarkable except as noted in HPI and below Physical Exam Const General: cooperative, healthy appearing, comfortable, no acute distress, well developed, alert and awake Nutritional Appearance: overweight Orientation/consciousness: patient oriented x3 Limitations: no limitations HEENT Head: Yes normal to inspection, Yes normocephalic and Yes atraumatic Ears: hearing grossly normal bilaterally Eyes General: appearance normal, both eyes and all related structures Neck Neck: Yes normal visual inspection and Yes trachea midline Chest Chest palpation & inspection: normal inspection of the chest Resp Effort & Inspection: normal respiratory effort and able to speak in complete sentences Cardio Rate: regular rate GI Inspection: Yes normal to inspection General: Yes no CVA tenderness Back/Spine/Pelvis Back: no CVA tenderness Skin General skin exam: no rashes or lesions noted Neuro General: patient oriented x3 Extrem General: Yes normal to inspection Psych Appearance: grossly normal and well kempt Mental Status: mental status grossly normal Speech and movement: Normal speech and movement present and Clear speech present Affect: normal affect Attitude: cooperative Thought process: Normal thought process present Thought content: Normal thought content present Insight: Fair insight present (Psych) Judgement: Fair judgement present (Psych) Results AMB Urinalysis, Automated UA Leukoctes 0 Iris/uL Last Edit by Donal Hong on 06/26/24 08:42 UA Nitrite Last Edit by [employer]jolene Hong on 06/26/24 08:42 UA Urobilinogen 0.2 mg/dL Last Edit by [employer]jolene P21rosita on 06/26/24 08:42 UA Protein 15 mg/dL Last Edit by [employer] on 06/26/24 08:42 UA pH 6.0 Last Edit by [employer] on 06/26/24 08:42 UA Blood 25 Denis/uL Last Edit by [employer]jolene P21rosita on 06/26/24 08:42 UA Specific [place] 1.030 Last Edit by [employer] on 06/26/24 08:42 UA Ketone Last Edit by [employer] on 06/26/24 08:42 UA Bilirubin 1 mg/dL Last Edit by [employer] on 06/26/24 08:42 UA Glucose 0 mg/dL Last Edit by [employer] on 06/26/24 08:42 Results Reviewed Results Reviewed: Laboratory Last Values Urine pH (Auto) 6.0 06/26/24 08:07 Specific [place] (Auto) 1.030 06/26/24 08:07 Urine Protein (Auto) 15 mg/dL 06/26/24 08:07 Glucose (UA)(Auto) 0 mg/dL 06/26/24 08:07 Urine Blood (Auto) 25 Denis/uL 06/26/24 08:07 Urine Bilirubin (Auto) 1 mg/dL 06/26/24 08:07 Urine Urobilinogen (Auto) 0.2 mg/dL 06/26/24 08:07 Leukocyte Esterase (Auto) 0 Iris/uL 06/26/24 08:07 Assessment & Plan Assessment & Plan (1) Nephrolithiasis: Code(s): N20.0 - Calculus of kidney Category: Medical (2) Enlarged prostate: Code(s): N40.0 - Benign prostatic hyperplasia without lower urinary tract symptoms Category: Medical Plan In office urinalysis results reviewed with the patient today; as noted above. Recent PSA results reviewed with the patient today; as noted above. Recent unofficial retroperitoneal ultrasound results reviewed with the patient today; as noted above. We discussed at length potential causes of variability in PSAs. Patient currently denies any bothersome urinary issues or concerns. We discussed possible initiation of finasteride given enlarged prostate noted on retroperitoneal ultrasound however patient does not feel any bothersome urinary issues or concerns at this time in does not feel this is necessary. Discussed, educated, and stressed the importance of adequate hydration relation to possible nephrolithiasis as well as overall health and well-being. Patient reports be happy with current voiding parameters. Will continue with surveillance monitoring Follow-up in 1 year with PSA and PVR; or sooner with any issues, concerns, and or questions. Orders: Orders AMB Urinalysis Automated Today Z13.9 - Encounter for screening, unspecified Patient Instructions: The patient had an opportunity to ask questions regarding the treatment plan. All questions were answered. Physical exam, labs, and imaging were discussed and reviewed in detail. As well as risks, benefits, and discussion of treatment choices. No major barriers to understanding were identified. The patient expressed understanding and agreement with the above treatment plan. The patient was made aware they should contact our office by phone for worsening of their current condition, the appearance of new symptoms, or with any questions or concerns. Compliance is encouraged with any medications and follow up testing that is ordered. It is a privilege to be allowed the opportunity to participate in? your urological care.? Again, if you have any questions or concerns If you have any questions or concerns please do not hesitate to contact me. The office is [phone]. This note is constructed using voice recognition software. While every effort has been made to ensure accuracy jordan man errors may have been included. Yours sincerely, DEBORAH Bedoya Coding Level of Care Code Est Pt Level 3 (76318) Diagnoses Nephrolithiasis N20.0 Enlarged prostate N40.0
== END 2024-06-26 08:23 | disposition home or self-care (01) ==
PROVIDERS: PCP Nurse Practitioner Family; Visit Provider Nurse Practitioner Family
DX: N20.0 Calculus of kidney (principal); N40.0 Benign prostatic hyperplasia without lower urinary tract symptoms; Z13.9 Encounter for screening, unspecified
CPT/HCPCS: 99213

== ENCOUNTER → 2024-06-26 07:41 | Outpatient (BNVA) | payer MEDICARE, SELFPAY | PROVIDERS: PCP Nurse Practitioner Family; Visit Provider Nurse Practitioner Family | DX: N20.0 Calculus of kidney (principal); N40.0 Benign prostatic hyperplasia without lower urinary tract symptoms | CPT/HCPCS: 81003; 99212 ==

== ENCOUNTER 2024-08-31 09:08 | Outpatient (AMB) | payer MEDICARE, SELFPAY ==
[2024-08-31 09:16] VITALS: BP 130/54; PULSE 52; BMI 36.8
--- NOTE | 2024-08-31 09:16 | A.OFFVIS_ITS ---
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 Use at bedtime ergocalciferol (vitamin D2) 1,250 mcg PO QWEEK 90 days ezetimibe 10 mg PO DAILY hydrochlorothiazide 12.5 mg PO DAILY 90 days lisinopril 10 mg PO DAILY HPI HPI 6 mth f/up-echo r/s 08/08: Details: Ruben is a 73-year-old male with past medical history of hypertension, hyperlipidemia, asymptomatic sinus bradycardia, aortic stenosis who presents for follow-up. Today he reports he has been feeling well with no concerning symptoms. He denies chest discomfort, shortness of breath, heart palpitations, lightheadedness. He reports good activity tolerance and compliance with his medications. [facility] Medical History Fatty liver Refused influenza vaccine Refused pneumococcal vaccination Bradycardia Thrombocytopenia Dyslipidemia Hypertension Aortic stenosis Surgical History No pertinent past surgical history Family History Father AA (aortic aneurysm) Social History Housing: House Alcohol intake: current Alcohol intake frequency: a few times a week Alcohol type: beer Patient Tobacco Use Status: Never used Tobacco e-Cigarette/Vaping Use: Never Used Second Hand Smoke Exposure: No service: No Current occupational status: retired Cognitive needs: No Hearing needs: No Vision needs: No Review of Systems Const All systems reviewed & are unremarkable except as noted in HPI and below Denies chills, Denies fatigue, Denies fever(s), Denies weight gain and Denies weight loss ENT Denies dizziness Card Denies chest pain, Denies leg edema, Denies lightheadedness, Denies palpitations, Denies dyspnea on exertion, Denies orthopnea and Denies other Resp Denies cough and Denies dyspnea on exertion GI Denies hematochezia and Denies change in stool character Musc Denies abnormal gait, Denies muscle weakness, Denies numbness, Denies radiating pain into limb and Denies tingling Neuro Denies abnormal gait, Denies dizziness, Denies numbness and Denies tingling Endo Denies fatigue and Denies palpitations Physical Exam Vital Signs: Last Vital Signs Pulse 52 08/31/24 09:16 BP 130/54 L 08/31/24 09:16 BMI result Body Mass Index 36.8 Const General: cooperative, healthy appearing, comfortable and no acute distress Orientation/consciousness: patient oriented x3 Neck Neck: Yes normal visual inspection Resp Effort & Inspection: normal respiratory effort Auscultation: clear to auscultation bilaterally, no crackles, no rales, no rhonchi and no wheezes Cardio Rate: regular rate Rhythm: regular rhythm Heart sounds: S1 normal heart sound present, S2 normal heart sound present, Murmur heart sound present (2/6 systolic murmur, right sternal border, second heart sound present) and no rubs Neuro General: patient oriented x3 Extrem General: Yes normal to inspection, No no pedal edema and No calf tenderness Psych Appearance: grossly normal Mental Status: mental status grossly normal Speech and movement: Normal speech and movement present Assessment & Plan Assessment & Plan (1) Aortic stenosis: Code(s): I35.0 - Nonrheumatic aortic (valve) stenosis Category: Medical Qualifiers: Cardiac valve disease etiology: nonrheumatic Qualified Code(s): I35.0 - Nonrheumatic aortic (valve) stenosis Plan: History of aortic stenosis being followed by periodic echoes. Last echo 03/16/2024 shows EF 65-70%, moderate to severe aortic stenosis with mean gradient 33 mmHg, aortic valve area 1.08 centimeter sq. He is currently asymptomatic. Cardinal signs of severe reviewed with him. Diagnosis of aortic stenosis, anticipated future plan of care reviewed. Will update echo to reassess . Cardiology office visit in 6 months, sooner if needed. (2) Hypertension: Code(s): I10 - Essential (primary) hypertension Category: Medical Qualifiers: Hypertension type: essential hypertension Qualified Code(s): I10 - Essential (primary) hypertension Plan: Well controlled at present. No med changes made. Continue lisinopril and hydrochlorothiazide. (3) Dyslipidemia: Code(s): E78.5 - Hyperlipidemia, unspecified Category: Medical Plan: [place] LDL goal less than 100. Labs done 03/09/2024 showed LDL 87. Continue atorvastatin and Zetia. (4) Sinus bradycardia: Code(s): R00.1 - Bradycardia, unspecified Category: Medical Plan: History of sinus bradycardia, asymptomatic. Prior Holter 02/2022 showed no pauses or heart block. Pulse rate today is 52. He remains asymptomatic and has good activity tolerance. Will plan for recheck of EKG next visit. Will check Holter if he reports new symptoms. Plan Time spent on chart review, documentation, interview and assessment Orders: Orders CA echo transthoracic complete Today I35.0 - Nonrheumatic aortic (valve) stenosis Coding Level of Care Code Est Pt Level 4 (98000) Complex EM visit Add On G2211 Diagnoses Nonrheumatic aortic valve stenosis I35.0 Cardiac valve disease etiology: nonrheumatic Essential hypertension I10 Hypertension type: essential hypertension Dyslipidemia E78.5 Sinus bradycardia R00.1 Time Spent (min) 30
--- OUTSIDE RECORDS SUMMARY | 2024-08-31 09:52 | XMS_ITS | Clinical Summary ---
Author Organization Formerly [facility] Address [address] [place] [address] Care Team Providers Care Horse Groomer Name Role Phone Unavailable Primary Care Provider Unavailabl e Immunizations Name Administration Dates Next Due Covid-19 mRNA Primary Series Vaccine - Moderna 0.5 mL Full Dose 08/05/2020,07/08/2020 Social History Tobacco Use Types Packs/Day Years Used Date Smoking Tobacco: Never Assessed Sex and Gender Information Value Date Recorded Sex Assigned at Not on file Gender Identity Not on file Sexual Orientation Not on file Plan of Treatment Health Maintenance Due Date Last Done Comments Hepatitis C Virus Screening 1950 DTaP/Tdap/Td Vaccines (1 - Tdap) 12/05/1971 Pneumococcal Vaccines 50+ (1 of 1 - PCV) 2002 Zoster (Shingles) Vaccine (1 of 2) 2002 COVID-19 Vaccine (3 - 2023-2 5 season) 2024 08/05/2020, 07/08/2020 RSV Vaccine 60 years and older and Patients (1 - 1-dose 75+ series) 12/05/2027 Hepatitis B Vaccines Aged Out No long er eligible based on patient's age to complete this topic
--- OUTSIDE RECORDS SUMMARY | 2024-08-31 09:52 | XMS_ITS | Patient Health Record ---
Author Organization [facility] Address [address] [place] [address] Care Team Providers Care Archivist Political History Name Role Phone ALLEY PARSONS Primary Care Provider Homar Fulton [phone] Allergies No Known Allergies Reason For Referral No Information Medications Medication SIG (Take, Route, Frequency, Duration) Notes Start Date End Date Status hydroCHLOROthiazide 12.5 MG 1 capsule in the morning Orally Once a day for 30 day(s) Active Vitamin D 50 MCG (2000 UT) 1 tablet Oral ly Once a day for 30 day(s) Active Lisinopril 10 MG 1 tablet Orally Once a day for 30 day(s) Active Vitamin D (Ergocalciferol) 59105 UNIT 1 capsule Orally QD Active Atorvastatin Calcium 80 MG 1 tablet Oral ly Once a day Active Immunizations Vaccine Route Administration Date Status Comme nts Influenza Unknown 03/10/2022 Refused Problems Problem Type SNOMED Code ICD Code Onset Dates Problem Status W/U Status Risk Notes Problem Colon cancer screening (909636587) Colon cancer screening (Z12.11) Active confirmed Problem History of adenomatous polyp of colon (747650888) History of adenomatous polyp of colon (Z86.010) Active confirmed Problem Diverticulosis of sigmoid colon (078341636) Diverticulosis of sigmoid colon (K57.30) Active confirmed Problem Long-term current use of drug therapy (433194710) 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 of diuretic (Z79.899) Active confirmed Plan Of Treatment Pending Test Test Name Order Date Pathology 05/12/2022 Future Test Test Name Order Date COLONOSCOPY 03/19/2015 COLONOSCOPY 03/10/2022 Insurance Providers Payer Name Payer Address Payer Phone Subscriber Number Group Number Insured Name Patient Relationship to Insured Coverage Start Date Coverage End Date MEDICARE [place] [address] [place] [address] [id number] RODERICK SWEET Self - patient is the insured MEDEX ATTN CLAIMS [address] [place] [address] [id number] RODERICK SWEET Self - patient is the insured Medical (General) History Medical History History ICD Code Screening colonoscopy 02/2005 , hyperplastic polyp and small internal hemorrhoids Hyperlipidemia Denies VT,DM,CVA,Lung disease,renal dise ase Sleep apnea--uses a CPAP He describes a yearly echocardiogram wit h Dr. Hernández HTN Screening Colonoscopy in May 5-one tubular adenoma removed Surgical History Surgery Date(Month/Year)
== END 2024-08-31 09:53 | disposition home or self-care (01) ==
PROVIDERS: PCP Nurse Practitioner Family; Visit Provider Nurse Practitioner Family
DX: I35.0 Nonrheumatic aortic (valve) stenosis (principal); I10 Essential (primary) hypertension; E78.5 Hyperlipidemia, unspecified; R00.1 Bradycardia, unspecified
CPT/HCPCS: 99214; G2211

== ENCOUNTER → 2024-08-31 09:08 | Outpatient (BNVA) | payer MEDICARE, SELFPAY | PROVIDERS: PCP Nurse Practitioner Family; Visit Provider Nurse Practitioner Family | DX: I35.0 Nonrheumatic aortic (valve) stenosis (principal); I10 Essential (primary) hypertension; E78.5 Hyperlipidemia, unspecified; R00.1 Bradycardia, unspecified | CPT/HCPCS: 99212 ==

== ENCOUNTER → 2024-09-14 07:57 | Outpatient (REF) | payer MEDICARE, SELFPAY ==
--- NOTE | 2024-09-14 07:58 | CA_ITS ---
Transthoracic Echocardiogram Patient (Last, First, Middle): Ruben Corona, Gender: Male Date of : 1950 Age: 73 Procedure Date: 09/14/2024 Procedure Type: Transthoracic Echocardiogram Location: OP Height: 170.18 cm Weight: 104.33 kg BSA: 2.15 m2 Heart Rate: 54 bpm BP: 130 / 64 mmHg Director Of Exhibit Development: TO Referring MD: Prema Peña RECORD CLERKDayanaC Symptoms: I35.0 - Nonrheumatic aortic (valve) stenosis Study Quality: Fair/Contrast ECG Rhythm: Bradycardia Conclusions: - Normal left ventricular size and systolic function. The visually estimated ejection fraction is between 60-65%. - E/E prime ratio is between 8 and 15 consistent with indeterminate filling pressures. - Mildly increased right ventricular cavity size. There is normal right ventricular systolic function. - The left atrium is moderately dilated. - There is moderate to severe aortic valve stenosis. The peak aortic velocity is 3.85 m/s. The mean gradient is 39 mmHg. The aortic valve area is 1.23 cm2. - Mean gradient across AV is in the severe range but calculated valve area is not severe. Correlate with symptoms and clinical exam and consider alternative assessment. Findings Procedure Information Contrast agent, definity, is being given per protocol without apparent complications. Left Ventricle Normal left ventricular size and systolic function. The visually estimated ejection fraction is between 60-65%. There is no evidence of regional wall motion abnormalities. Abnormal diastolic function is noted. Spectral Doppler is indicative of a pseudonormal filling pattern. E/E prime ratio is between 8 and 15 consistent with indeterminate filling pressures. There is mild septal asymmetric hypertrophy. Right Ventricle Mildly increased right ventricular cavity size. There is normal right ventricular systolic function. Atria The left atrium is moderately dilated. The right atrium is normal in size. Aortic Valve There is a normal trileaflet aortic valve. There is moderate calcification of the aortic valve. There is moderate to severe aortic valve stenosis. The peak aortic velocity is 3.85 m/s. The mean gradient is 39 mmHg. The aortic valve area is 1.23 cm2. There is trace (trivial) aortic valve regurgitation. Mitral Valve The mitral valve appears normal. There is no mitral valve regurgitation. There is no mitral valve stenosis. Pulmonic Valve The pulmonic valve is likely normal. Tricuspid Valve Normal tricuspid valve structure. There is no tricuspid valve regurgitation. Tricuspid regurgitation envelope is inadequate for calculation of right ventricular systolic pressure. Normal right atrial pressure. Great Vessels All visible segments of the aorta are normal in size. Venous The inferior vena cava is normal in size and collapses greater than 50% with inspiration. Pericardium/Pleural There is no evidence of pericardial effusion. Prior Study Comparison Changes noted compared to prior study dated: 03/16/2024. Aortic valve gradients are higher. Mildly dilated RV. Measurements 2D Linear Measurements IVSd: 1.19 0.6-0.9/0.6-1.0 cm LVIDd: 5.34 3.9-5.3/4.2-5.9 cm LVIDd Index: 2.48 2.4-3.2/2.2-3.1 cm/m2 LVIDs: 3.34 2.0-3.6 cm LVPWd: 0.87 0.7-1.1 cm LA Diam: 4.80 2.7-3.8/3.0-4.0 cm LAIDs Index: 2.23 1.5-2.3 cm/m2 LV Mass: 263.07 67-162/88-224 g LV Mass Index: 122.36 43-95/49-115 g/m2 LVOT Diam: 2.40 3.0+(-)1.3 cm 2D Systolic Function EF 4C: 59.10 >55% EF 2C: 58.60 >55% EF BiP: 59.20 >55% Mitral Valve MV Pk E: 0.82 MV PK A: 0.58 MV Decel Time: 195.00 E/A: 1.40 E'Lateral: 6.53 E'Medial: 5.98 E/E' Med: 13.70 E/E' Lat: 12.50 PHT: 57.00 MVA PHT: 3.86 Decel [place]: 4.19 Aortic Valve AoV Pk Mendel: 3.85 AoV Mn Mendel: 3.00 AoV VTI: 1.13 AoV Pk Grad: 59.00 Aov Mn Grad: 39.00 JOSE MARIA Cont.VTI: 1.23 LVOT LVOT Pk Mendel: 1.09 LVOT Mn Mendel: 0.73 LVOT VTI: 0.31 LVOT Pk Grad: 5.00 LVOT Mn Grad: 2.00 LVOT Diam: 2.40 LVOT Area: 4.52 Diastolic Function MV Pk E: 0.82 MV Pk A: 0.58 E/A: 1.40 E'Medial: 5.98 E/E' Med: 13.70 E' Laterial: 6.53 E/E' Lat: 12.50 Right Ventricle TAPSE (mm): 36.60 TVS' Mendel: 17.20 Tricuspid Valve RA Press: 3.00 Great Vessels Aorta Sinus of Valsalva: 3.26 2.0-3.5 cm Ao Asc: 3.40 2.1-3.4 cm Updated in Other Vendor System with Status of Final Maykel Hernández MD electronically signed on 09/16/2024 10:39:05 PM with status of Final
--- OUTSIDE RECORDS SUMMARY | 2024-09-14 07:59 | XMS_ITS | Clinical Summary ---
Author Organization [facility] Address [address] [place] [address] Care Team Providers Care Event Planning Intern Name Role Phone Unavailable Primary Care Provider [...]
--- OUTSIDE RECORDS SUMMARY | 2024-09-14 07:59 | XMS_ITS ---
Author Name [facility] Organization Unknown Care Team Organization Name Specialty Phone Email Start Date End [facility] 03/17/2022 03/17/2022
--- OUTSIDE RECORDS SUMMARY | 2024-09-14 07:59 | XMS_ITS | Patient Health Record ---
Author Organization [facility] Address [address] [place] [address] Care Team Providers Care Precipitator Operator Name Role Phone ALLEY PARSONS Primary Care Provider Homar Fulton [phone] Allergies No Known Allergies Reason For Referral [...] for 30 day(s) Active Vitamin D (Ergocalciferol) 59061 UNIT 1 capsule Orally QD Active Atorvastatin Calcium 80 MG 1 tablet Oral ly Once a day Active Immunizations Vaccine Route Administration Date Status Comme nts Influenza Unknown 03/10/2022 Refused Problems Problem Type SNOMED Code ICD Code Onset Dates Problem Status W/U Status Risk Notes Problem Colon cancer screening (576516137) Colon cancer screening (Z12.11) Active confirmed Problem History of adenomatous polyp of colon (924570656) History of adenomatous polyp of colon (Z86.010) Active confirmed Problem Diverticulosis of sigmoid colon (245636359) Diverticulosis of sigmoid colon (K57.30) Active confirmed Problem Long-term current use of drug therapy (743937871) 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 intermediates current use of diuretic (Z79.899) Active confirmed Plan Of Treatment Pending Test Test Name Order Date Pathology 05/12/2022 Future Test Test Name Order Date COLONOSCOPY 03/19/2015 COLONOSCOPY 03/10/2022 Insurance Providers Payer Name Payer Address Payer Phone Subscriber Number Group Number Insured Name Patient Relationship to Insured Coverage Start Date Coverage End Date MED[place]ARE OF [place] [address] [place] [address] [id number] RODERICK SWEET Self - patient is the insured MEDEX ATTN CLAIMS [address] [place] [address] [id number] RODERICK SWEET Self - patient is the insured Medical (General) History Medical History History ICD Code Screening colonoscopy 02/2005 , hyperplastic polyp and small internal hemorrhoids Hyperlipidemia Denies IA,DM,CVA,Lung disease,renal dise ase Sleep apnea--uses a CPAP He describes a yearly echocardiogram wit h Dr. Hernández HTN Screening Colonoscopy in May 5-one tubular adenoma removed Surgical History Surgery Date(Month/Year)
== END ==
LOC: HO.CARD 07:57
PROVIDERS: PCP Nurse Practitioner Family; Visit Provider Nurse Practitioner Family
DX: I35.0 Nonrheumatic aortic (valve) stenosis (principal)
CPT/HCPCS: 93306; Q9957

== ENCOUNTER → 2024-09-14 07:58 | Outpatient (BNV) | payer MEDICARE, SELFPAY | PROVIDERS: PCP Nurse Practitioner Family; Visit Provider Internal Medicine Cardiovascular Disease | DX: I42.2 Other hypertrophic cardiomyopathy (principal); I35.2 Nonrheumatic aortic (valve) stenosis with insufficiency; I35.8 Other nonrheumatic aortic valve disorders | CPT/HCPCS: 93306 ==

== ENCOUNTER → 2024-10-03 10:24 | Outpatient (REF) | payer MEDICARE, SELFPAY ==
--- NOTE | 2024-10-03 10:28 | CA_ITS ---
Acquisition Time: 2024-10-03 10:44:23 Total Exercise Time: 00:09:12 Test Indications: AORTIC STENOSIS, BRADYCARDIA Medications: SEE H&P Protocol: NATALIA Max HR: 111 BPM 74% of Pred: 149 BPM Max BP: 162/62 mmHG Max Work Load: 10.4 METS Exercise stress test with exercise 9 mins 12 secs of Natalia Protocol, achieving 75% MPHR, with reports of moderate SOB, no chest pain, with frequent isolated PACs and PVCs, with normotensive response to exercise. Without EKG changes meeting criteria for ischemia. In recovery, breathing returned to baseline. Test reviewed with Dr. Hernández. Referred By: Prema Peña Electronically Signed By: Darren Wynne
--- OUTSIDE RECORDS SUMMARY | 2024-10-03 11:47 | XMS_ITS | Clinical Summary ---
Author Organization [facility] Address [address] [place] [address] Care Team Providers Care Customer Counter Representative Name Role Phone Unavailable Primary Care Provider [...]
--- OUTSIDE RECORDS SUMMARY | 2024-10-03 11:47 | XMS_ITS | Patient Health Record ---
Author Organization [facility] Address [address] [place] [address] Care Team Providers Care Rounding And Backing Machine Operator Name Role Phone ALLEY PARSONS Primary Care Provider Homar Fulton [phone] Allergies No Known Allergies Reason For Referral [...] for 30 day(s) Active Vitamin D (Ergocalciferol) 73099 UNIT 1 capsule Orally QD Active Atorvastatin Calcium 80 MG 1 tablet Oral ly Once a day Active Immunizations Vaccine Route Administration Date Status Comme nts Influenza Unknown 03/10/2022 Refused Problems Problem Type SNOMED Code ICD Code Onset Dates Problem Status W/U Status Risk Notes Problem Colon cancer screening (780164925) Colon cancer screening (Z12.11) Active confirmed Problem History of adenomatous polyp of colon (486933684) History of adenomatous polyp of colon (Z86.010) Active confirmed Problem Diverticulosis of sigmoid colon (549788612) Diverticulosis of sigmoid colon (K57.30) Active confirmed Problem Long-term current use of drug therapy (251496789) continuous churn buttermaker current use of diuretic (Z79.899) Active confirmed Plan Of Treatment Pending Test Test Name Order Date Pathology 05/12/2022 Future Test Test Name Order Date COLONOSCOPY 03/19/2015 COLONOSCOPY 03/10/2022 Insurance Providers Payer Name Payer Address Payer Phone Subscriber Number Group Number Insured Name Patient Relationship to Insured Coverage Start Date Coverage End Date MED[place]ARE OF [place] [address] [place] [address] [phone] [id number] RODERICK SWEET Self - patient is the insured MEDEX ATTN CLAIMS [address] [place] [address] [phone] [id number] RODERICK SWETE Self - patient is the insured Medical (General) History Medical History History ICD Code Screening colonoscopy 02/2005 , hyperplastic polyp and small internal hemorrhoids Hyperlipidemia Denies VA,DM,CVA,Lung disease,renal dise ase Sleep apnea--uses a CPAP He describes a yearly echocardiogram wit h Dr. Hernández HTN Screening Colonoscopy in May 5-one tubular adenoma removed Surgical History Surgery Date(Month/Year)
== END ==
LOC: HO.CARD 10:24
PROVIDERS: PCP Nurse Practitioner Family; Visit Provider Nurse Practitioner Family
DX: I35.0 Nonrheumatic aortic (valve) stenosis (principal)
CPT/HCPCS: 93017

== ENCOUNTER → 2024-10-03 10:28 | Outpatient (BNV) | payer MEDICARE, SELFPAY | PROVIDERS: PCP Nurse Practitioner Family | DX: R06.02 Shortness of breath (principal); I49.1 Atrial premature depolarization; I49.3 Ventricular premature depolarization | CPT/HCPCS: 93016; 93018 ==

== ENCOUNTER 2024-11-08 12:52 | Outpatient (AMB) | payer MEDICARE, SELFPAY ==
--- NOTE | 2024-11-08 13:04 | AM.OFFVISNUR ---
Vital Signs 11/08/24 13:04 Weight 236 lb Intake Visit Reasons: Tdap shot Allergies Codeine Allergy (Unknown, Uncoded 06/26/24 08:32) rash Immunizations Boostrix Tdap 2.5 Lf unit-8 mcg-5 Lf/0.5 mL intramuscular syringe Performing Provider: DEBORAH Ortiz Performing Location: [facility] Administered by: ANDREW Hicks on 11/08/24 13:05 Dose Route Admin Location Dispensed Lot Number Expiration Date [facility] Water Control Station Engineer 0.5 mL IM Left Deltoid 0.5 mL [id number] 02/20/27 86799-795-37 Get Satisfaction VIS Given Date VIS Provided VIS Publication Date 11/08/24 Single Vaccine 21 Eligibility Eligibility Date Funding Source Not [facility] Eligible 11/08/24 Private Assessment & Plan Assessment & Plan Orders: Orders TDaP Immunization Today Z23 - Encounter for immunization Medications: New Boostrix Tdap (diphth,pertus(acell),tetanus) 0.5 mL IM ONCE 0.5 mL 0RF NS Z23 - Encounter for immunization Coding
--- OUTSIDE RECORDS SUMMARY | 2024-11-08 13:28 | XMS_ITS | Patient Health Record ---
Author Organization [facility] Address [address] [place] [address] Care Team Providers Care Oracle Adf Developer Name Role Phone ALLEY PARSONS Primary Care Provider Homar Fulton [phone] Allergies No Known Allergies Reason For Referral [...] for 30 day(s) Active Vitamin D (Ergocalciferol) 04397 UNIT 1 capsule Orally QD Active Atorvastatin Calcium 80 MG 1 tablet Oral ly Once a day Active Immunizations Vaccine Route Administration Date Status Comme nts Influenza Unknown 03/10/2022 Refused Problems Problem Type SNOMED Code ICD Code Onset Dates Problem Status W/U Status Risk Notes Problem Colon cancer screening (313780777) Colon cancer screening (Z12.11) Active confirmed Problem History of adenomatous polyp of colon (895334127) History of adenomatous polyp of colon (Z86.010) Active confirmed Problem Diverticulosis of sigmoid colon (718176670) Diverticulosis of sigmoid colon (K57.30) Active confirmed Problem Long-term current use of drug therapy (950214977) termite control service representative current use of diuretic (Z79.899) Active confirmed Plan Of Treatment Pending Test Test Name Order Date Pathology 05/12/2022 Future Test Test Name Order Date COLONOSCOPY 03/19/2015 COLONOSCOPY 03/10/2022 Insurance Providers Payer Name Payer Address Payer Phone Subscriber Number Group Number Insured Name Patient Relationship to Insured Coverage Start Date Coverage End Date [place] [address] [place] [address] [phone] [id number] RODERICK SWEET Self - patient is the insured MEDEX ATTN CLAIMS [address] [place] [address] [id number] RODERICK SWEET Self - patient is the [...]
--- OUTSIDE RECORDS SUMMARY | 2024-11-08 13:28 | XMS_ITS | Clinical Summary ---
Author Organization [facility] Address [address] [place] [address] Care Team Providers Care Director Post Name Role Phone Unavailable Primary Care Provider Unavailabl e Immunizations Immunization Administration Dates Next Due Covid-19 mRNA Primary Series Vaccine - Moderna 0.5 mL Full Dose 08/05/2020,07/08/2020 Social History Tobacco Use Types Packs/Day Years Used Date Smoking Tobacco: Never Assessed Sex and Gender Information Value Date Recorded Sex Assigned at Not on file Legal Sex Male 7:03 PM EST Gender Identity Not on file Sexual Orientation Not on file Plan of Treatment Health Maintenance Due Date Last Done Comments Hepatitis C Virus Screening 1950 DTaP/Tdap/Td Vaccines (1 - Tdap) 12/05/1971 Pneumococcal Vaccines 50+ (1 of 1 - PCV) 2002 Zoster (Shingles) Vaccine (1 of 2) 2002 COVID-19 Vaccine ( - 2023-2 5 season) 2024 08/05/2020, 07/08/2020 RSV Vaccine 60 years and older and Patients (1 - 1-dose 75+ series) 12/05/2027 Hepatitis B Vaccines Aged Out No long er eligible based on patient's age to complete this topic
== END 2024-11-08 14:11 | disposition home or self-care (01) ==
LOC: HO.HMCC 12:52
PROVIDERS: PCP Nurse Practitioner Family; Visit Provider Nurse Practitioner Family
DX: Z23 Encounter for immunization (principal)

== ENCOUNTER → 2024-11-08 12:52 | Outpatient (BNVA) | payer MEDICARE, SELFPAY | PROVIDERS: PCP Nurse Practitioner Family; Visit Provider Nurse Practitioner Family | DX: Z23 Encounter for immunization (principal) | CPT/HCPCS: 90471; 90715 ==

== ENCOUNTER → 2025-02-26 09:00 | Outpatient (BNV) | payer MEDICARE, SELFPAY | PROVIDERS: PCP Nurse Practitioner Family; Visit Provider Internal Medicine | DX: I35.0 Nonrheumatic aortic (valve) stenosis (principal) | CPT/HCPCS: 93306 ==

== ENCOUNTER → 2025-02-26 09:01 | Outpatient (REF) | payer MEDICARE, SELFPAY ==
--- NOTE | 2025-02-26 09:00 | CA_ITS ---
Transthoracic Echocardiogram Patient (Last, First, Middle): Ruben Corona, Gender: Al Date of : 1950 Age: 74 Procedure Date: 02/26/2025 Procedure Type: Transthoracic Echocardiogram Location: OP Height: 172. cm Weight: 104.33 kg BSA: 2.16 m2 Heart Rate: 55 bpm BP: 122 / 75 mmHg Cook Helper Vegetable: LUCILA Referring MD: Prema Peña DESIGN ENGINEERING TECHNICIAN-C Symptoms: I35.0 - Nonrheumatic aortic (valve) stenosis Study Quality: Fair ECG Rhythm: Arrhythmia Conclusions: - The left ventricular systolic function is normal. The calculated ejection fraction is 64% by biplane method. - There is moderate aortic valve stenosis. Findings Left Ventricle Normal left ventricular cavity size. There is mildly increased left ventricular wall thickness. The left ventricular systolic function is normal. The calculated ejection fraction is 64% by biplane method. There is no evidence of regional wall motion abnormalities. Evidence suggests grade I (mild) diastolic dysfunction. Right Ventricle Normal right ventricular cavity size and systolic function. Atria The left atrium is mildly dilated. The right atrium is normal in size. Aortic Valve There is moderate calcification of the aortic valve. There is moderate aortic valve stenosis. The mean gradient is 30 mmHg. The aortic valve area is 1.42 cm2. There is trace (trivial) aortic valve regurgitation. Dimensionless index 0.28. Mitral Valve The mitral valve appears normal. There is no mitral valve regurgitation. There is no mitral valve stenosis. Pulmonic Valve There is trace pulmonic valve regurgitation. Tricuspid Valve There is trace tricuspid valve regurgitation. There is no evidence of pulmonary hypertension. Great Vessels The asc aorta is normal in size. Venous The inferior vena cava is normal in size and collapses greater than 50% with inspiration. Pericardium/Pleural There is no evidence of pericardial effusion. Prior Study Comparison Changes noted compared to prior study dated: 09/14/2024. Mean gradient is lower and aortic valve area is larger. Hence could be underestimation. Measurements 2D Linear Measurements IVSd: 1.04 0.6-0.9/0.6-1.0 cm LVIDd: 5.36 3.9-5.3/4.2-5.9 cm LVIDd Index: 2.48 2.4-3.2/2.2-3.1 cm/m2 LVIDs: 3.14 2.0-3.6 cm LVPWd: 1.15 0.7-1.1 cm LA Diam: 5.10 2.7-3.8/3.0-4.0 cm LAIDs Index: 2.36 1.5-2.3 cm/m2 LV Mass: 287.43 67-162/88-224 g LV Mass Index: 133.07 43-95/49-115 g/m2 LVOT Diam: 2.40 3.0+(-)1.3 cm 2D Systolic Function EF 4C: 62.40 >55% EF 2C: 60.80 >55% EF BiP: 63.50 >55% Mitral Valve MV Pk E: 0.79 MV PK A: 1.04 MV Decel Time: 235.00 E/A: 0.80 E'Lateral: 6.42 E'Medial: 4.90 E/E' Med: 16.20 E/E' Lat: 12.40 PHT: 69.00 MVA PHT: 3.19 Decel Berrien: 3.37 Aortic Valve AoV Pk Mendel: 3.53 AoV Mn Mendel: 2.55 AoV VTI: 0.84 AoV Pk Grad: 50.00 Aov Mn Grad: 30.00 JOSE MARIA Cont.VTI: 1.42 LVOT LVOT Pk Mendel: 0.98 LVOT Mn Mendel: 0.69 LVOT VTI: 0.27 LVOT Pk Grad: 4.00 LVOT Mn Grad: 2.00 LVOT Diam: 2.40 LVOT Area: 4.52 Diastolic Function MV Pk E: 0.79 MV Pk A: 1.04 E/A: 0.80 E'Medial: 4.90 E/E' Med: 16.20 E' Laterial: 6.42 E/E' Lat: 12.40 Right Ventricle TAPSE (mm): 31.50 TVS' Mendel: 18.90 Tricuspid Valve TR Pk Mendel: 2.14 TR Pk Grad: 18.00 RA Press: 3.00 RVSP: 21.00 Great Vessels Aorta Sinus of Valsalva: 3.40 2.0-3.5 cm Ao Asc: 3.40 2.1-3.4 cm Pulmonary Valve PV Pk Mendel: 1.37 Peak PV Grad: 8.00 Updated in Other Vendor System with Status of Final Guanako Corona MD electronically signed on 02/26/2025 10:54:08 AM with status of Final
--- OUTSIDE RECORDS SUMMARY | 2025-02-26 09:50 | XMS_ITS | Clinical Summary ---
Author Organization [facility] Address [address] [place] [address] Care Team Providers Care Motor Transport Inspector Name Role Phone Unavailable Primary Care Provider [...]
--- OUTSIDE RECORDS SUMMARY | 2025-02-26 09:50 | XMS_ITS | Patient Health Record ---
Author Organization [facility] Address [address] [place] [address] Care Team Providers Care Coin Box Inspector Name Role Phone ALLEY PARSONS Primary Care Provider Homar Fulton [phone] Allergies No Known Allergies Reason For Referral [...] for 30 day(s) Active Vitamin D (Ergocalciferol) 62488 UNIT 1 capsule Orally QD Active Atorvastatin Calcium 80 MG 1 tablet Oral ly Once a day Active Immunizations Vaccine Route Administration Date Status Comme nts Influenza Unknown 03/10/2022 Refused Problems Problem Type SNOMED Code ICD Code Onset Dates Problem Status W/U Status Risk Notes Problem Colon cancer screening (392727503) Colon cancer screening (Z12.11) Active confirmed Problem History of adenomatous polyp of colon (173903777) History of adenomatous polyp of colon (Z86.010) Active confirmed Problem Diverticulosis of sigmoid colon (172437972) Diverticulosis of sigmoid colon (K57.30) Active confirmed Problem Long-term current use of drug therapy (404938318) residential current use of diuretic (Z79.899) Active confirmed Plan Of Treatment Pending Test Test Name Order Date Pathology 05/12/2022 Future Test Test Name Order Date COLONOSCOPY 03/19/2015 COLONOSCOPY 03/10/2022 Insurance Providers Payer Name Payer Address Payer Phone Subscriber Number Group Number Insured Name Patient Relationship to Insured Coverage Start Date Coverage End Date MED[place]ARE OF [place] [address] [place] [address] [id number] RODERICK SWEET Self - patient is the insured MEDEX ATTN CLAIMS [address] [place] [address] [id number] RODERICK SWEET Self - patient is the insured Medical (General) History Medical History History ICD Code Screening colonoscopy 02/2005 , hyperplastic polyp and small internal hemorrhoids Hyperlipidemia Denies MT,DM,CVA,Lung disease,renal dise ase Sleep apnea--uses a CPAP He describes a yearly echocardiogram wit h Dr. Hernández HTN Screening Colonoscopy in May 5-one tubular adenoma removed Surgical History Surgery Date(Month/Year)
--- OUTSIDE RECORDS SUMMARY | 2025-02-26 09:50 | XMS_ITS ---
Author Name [facility] Organization Unknown Care Team Organization Name Specialty Phone Email Start Date End [facility] 03/17/2022 03/17/2022
--- OUTSIDE RECORDS SUMMARY | 2025-02-26 09:50 | XMS_ITS | Patient Health Record ---
Author Organization [facility] radha Newton Address [address] [place] [address] Care Team Providers Care Supervisor Cellars Name Role Phone Brian Chawla MD Primary Care Provider Elliott Davis Unavailable [phone] Reason For Referral No Information Medications Medication SIG (Take, Route, Frequency, Duration) Notes Start Date End Date Status Simvastatin 40 MG 1 tablet in the even ing Orally Once a day; Duration: 30 day(s) Active Nystatin-Triamcinolone 946573-0.1 UNIT/GM-% 1 application to affected area Externally Twice a day; Duration: 30 days 12/01/2012 Active Problems Problem Type SNOMED Code ICD Code Onset Dates Problem Status W/U Status Risk Notes Problem Onychomycosis (462872399) Onychomycosis (110.1) Active confirmed Problem Pain in limb (32590319) Pain in Limb (729.5) Active confirmed Problem Tinea pedis (5607394) Tinea Pedis (110.4) Active confirmed Plan Of Treatment No Information Insurance Providers Payer Name Payer Address Payer Phone Subscriber Number Group Number Insured Name Patient Relationship to Insured Coverage Start Date Coverage End Date [employer] Others [address] [place] [address] [id number] RODERICK SWEET Self - patient is the insured Medical (General) History Medical History History ICD Code cholesterol
== END ==
LOC: HO.CARD 09:01
PROVIDERS: PCP Nurse Practitioner Family; Visit Provider Nurse Practitioner Family
DX: I35.0 Nonrheumatic aortic (valve) stenosis (principal)
CPT/HCPCS: 93306

== ENCOUNTER 2025-04-26 09:19 | Outpatient (AMB) | payer MEDICARE, SELFPAY ==
--- NOTE | 2025-04-26 09:29 | A.OFFVIS_ITS ---
Vital Signs 04/26/25 09:30 Height 5 ft 7 in Weight 232 lb 9.403 oz BMI 36.4 BP 128/52 L Blood Pressure Location Lt brachial Position Sitting Pulse 48 L Pulse Source Pulse Oximeter Intake Visit Reasons: r/s 04/22/25 6 mos followup Cardiothoracic Surgeon Required: No Allergies Codeine Allergy (Unknown, Uncoded 04/26/25 09:33) rash Medication List - Last Reconciled 04/26/25 by Prema Peña NP-C atorvastatin 80 mg PO BEDTIME cetirizine (Zyrtec) 10 mg PO DAILY PRN CPAP CPAP supplies-mask, tubing, filters & headgear. Use at bedtime ergocalciferol (vitamin D2) 1,250 mcg PO QWEEK 90 days ezetimibe 10 mg PO DAILY hydrochlorothiazide 12.5 mg PO DAILY 90 days lisinopril 10 mg PO DAILY HPI HPI r/s 04/22/25 6 mos followup: Details: Ruben is a 74-year-old male with past medical history of hypertension, hyperlipidemia, asymptomatic sinus bradycardia, aortic stenosis who presents for follow-up. Today he reports he has been feeling well with no concerning symptoms. He denies chest discomfort, shortness of breath, heart palpitations, lightheadedness. He reports good activity tolerance and compliance with his med ications. 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 [facility] Medical History Fatty liver Refused influenza vaccine Refused pneumococcal vaccination Bradycardia Thrombocytopenia Dyslipidemia Hypertension Aortic stenosis Surgical History No pertinent past surgical history Family History Father AA (aortic aneurysm) Social History Housing: House Alcohol intake: current Alcohol intake frequency: a few times a week Alcohol type: beer Patient Tobacco Use Status: Never used Tobacco e-Cigarette/Vaping Use: Never Used Second Hand Smoke Exposure: No service: No Current occupational status: retired Cognitive needs: No Hearing needs: No Vision needs: No Review of Systems Const All systems reviewed & are unremarkable except as noted in HPI and below ENT Denies dizziness Card Denies chest pain, Denies chest pain at rest, Denies chest pain with activity, Denies rapid heart rate, Denies pedal edema, Denies edema, Denies leg edema, Denies lightheadedness, Denies palpitations, Denies dyspnea, Denies dyspnea on exertion and Denies orthopnea Resp Denies cough, Denies dyspnea and Denies dyspnea on exertion GI Denies hematochezia and Denies change in stool character Musc Denies abnormal gait, Denies limited range of motion, Denies muscle cramps, Denies muscle weakness, Denies numbness, Denies radiating pain into limb, Denies stiffness and Denies tingling Neuro Denies abnormal gait, Denies dizziness, Denies numbness and Denies tingling Endo Denies palpitations Physical Exam Vital Signs: Last Vital Signs Pulse 48 L 04/26/25 09:30 BP 128/52 L 04/26/25 09:30 BMI result Body Mass Index 36.4 Const General: cooperative, healthy appearing, comfortable and no acute distress Orientation/consciousness: patient oriented x3 Neck Neck: Yes normal visual inspection Resp Effort & Inspection: normal respiratory effort Auscultation: clear to auscultation bilaterally, no rales, no rhonchi and no wheezes Cardio Rate: regular rate Rhythm: regular rhythm Heart sounds: S1 normal heart sound present, S2 normal heart sound present, no gallops, no murmurs and no rubs Neuro General: patient oriented x3 Extrem General: Yes normal to inspection Psych Appearance: grossly normal Mental Status: mental status grossly normal Speech and movement: Normal speech and movement present Office Procedures EKG Details: Today, read by me, sinus bradycardia, junctional beat noted, PVCs, rate 48, QTC 405 milliseconds [id number], Complete Assessment & Plan Assessment & Plan (1) Aortic stenosis: Code(s): I35.0 - Nonrheumatic aortic (valve) stenosis Category: Medical Qualifiers: Cardiac valve disease etiology: nonrheumatic Qualified Code(s): I35.0 - Nonrheumatic aortic (valve) stenosis Plan: History of aortic stenosis being followed by periodic echoes. Echo 03/16/2024 shows EF 65-70%, moderate to severe aortic stenosis with mean gradient 33 mmHg, aortic valve area 1.08 centimeter sq. Exercise stress test done 10/03/2024 with exercise 9 minutes 12 seconds with moderate shortness of breath, no EKG changes. Echocardiogram done 02/26/2025 showed EF 65%, moderate aortic stenosis with mean gradient 30 mmHg and aortic valve area 1.42 centimeter sq. He is currently asymptomatic. Cardinal signs of severe reviewed with him. Diagnosis of aortic stenosis, anticipated future plan of care reviewed. Will update echo prior to next visit to reassess . Cardiology office visit in 6 months, sooner if needed. (2) Hypertension: Code(s): I10 - Essential (primary) hypertension Category: Medical Qualifiers: Hypertension type: essential hypertension Qualified Code(s): I10 - Ess ential (primary) hypertension Plan: Blood pressure goal less than 130/80. Well controlled at present. No med changes made. Continue lisinopril and hydrochlorothiazide. (3) Dyslipidemia: Code(s): E78.5 - Hyperlipidemia, unspecified Category: Medical Plan: [place] LDL goal less than 100. Labs done 03/09/2024 showed LDL 87. He is due for updated labs. Continue atorvastatin and Zetia. (4) Sinus bradycardia: Code(s): R00.1 - Bradycardia, unspecified Category: Medical Plan: History of sinus bradycardia, asymptomatic. Prior Holter 02/2022 showed sinus bradycardia with average heart rate 48 beats per minute no pauses or heart block. Exercise stress test 10/03/2024 and able to achieve 75% MPHR with 9 minutes 12 seconds of exercise, Mildly suboptimal. EKG done today showing sinus bradycardia with at least 1 junctional beat, 2 PVCs, rate 48. He remains completely asymptomatic and has good activity tolerance. Will check Holter for significant Ishmael, pauses or heart blocks. Plan During the visit, we discussed the stability of the aortic valve stenosis and the importance of monitoring for new symptoms such as chest pain or shortness of breath. We also addressed the bradycardia, noting the heart rate in the 40s, and decided to use a heart monitor to further evaluate the condition. I explained that if symptomatic bradycardia is confirmed, a pacemaker might be necessary. The patient was advised to follow up in six months or sooner if symptoms develop, and to complete blood work and heart monitoring as planned. Orders: Orders CA echo transthoracic complete 10/07/25 I35.0 - Nonrheumatic aortic (valve) stenosis ECG 3 day holter monitor Today R00.1 - Bradycardia, unspecified Patient Instructions: - Monitor for symptoms like chest pain or shortness of breath and report any changes. - Complete the heart monitoring as scheduled and follow up with results. - Complete blood work before the next appointment. - Follow up in six months or sooner if new symptoms develop. Patient was informed and verbally consented to the use of an ambient scribe for clinic note documentation during this visit. Visit time spent on chart review, interview, assessment, orders, documentation. Coding Level of Care Code Est Pt Level 4 (09214) Complex EM visit Add On G2211 Diagnoses Nonrheumatic aortic valve stenosis I35.0 Cardiac valve disease etiology: nonrheumatic Essential hypertension I10 Hypertension type: essential hypertension Dyslipidemia E78.5 Sinus bradycardia R00.1 CPT Codes EKG - CPT: [id number], Complete ([id number]) Time Spent (min) 28
[2025-04-26 09:30] VITALS: BP 128/52; PULSE 48; BMI 36.4
--- OUTSIDE RECORDS SUMMARY | 2025-04-26 10:21 | XMS_ITS | Clinical Summary ---
Author Organization [facility] Address [address] [place] [address] Care Team Providers Care Air Defense Control Officer Name Role Phone Unavailable Primary Care Provider [...] Health Maintenance Due Date Last Done Comments Advance Care Planning 1950 Hepatitis C Virus Screening 1950 DTaP/Tdap/Td Vaccines (1 - Tdap) 12/05/1971 Pneumococcal Vaccines 50+ (1 of 1 - PCV) 2002 Zoster (Shingles) Vaccine (1 of 2) 2002 COVID-19 Vaccine (3 - 2024-2 6 season) 2025 08/05/2020, 07/08/2020 RSV Vaccine 50 years and older and Patients (1 - 1-dose 75+ series) 12/05/2027 Hepatitis B Vaccines Aged Out No long er eligible based on patient's age to complete this topic
--- OUTSIDE RECORDS SUMMARY | 2025-04-26 10:21 | XMS_ITS | Patient Health Record ---
Author Organization [facility] radha [place] Address [address] [place] [address] Care Team Providers Care Pollution Control Chemist Name Role Phone Brian Chawla MD Primary Care Provider Elliott Davis Unavailable [phone] Reason For Referral No Information Medications Medication SIG (Take, Route, Frequency, Duration) Notes Start Date End Date Status Simvastatin 40 MG 1 tablet in the even ing Orally Once a day; Duration: 30 day(s) Active Nystatin-Triamcinolone 730453-6.1 UNIT/GM-% 1 application to affected area Externally Twice a day; Duration: 30 days 12/01/2012 Active Problems Problem Type SNOMED Code ICD Code Onset Dates Problem Status W/U Status Risk Notes Problem Onychomycosis (391356288) Onychomycosis (110.1) Active confirmed Problem Pain in limb (47731128) Pain in Limb (729.5) Active confirmed Problem Tinea pedis (2144008) Tinea Pedis (110.4) Active confirmed Plan Of Treatment No Information Insurance Providers Payer Name Payer Address Payer Phone Subscriber Number Group Number Insured Name Patient Relationship to Insured Coverage Start Date Coverage End Date [employer] All Others [address] [place] [address] [phone] [id number] RODERICK SWEET Self - patient is the insured Medical (General) History Medical History History ICD Code cholesterol
--- OUTSIDE RECORDS SUMMARY | 2025-04-26 10:21 | XMS_ITS | Patient Health Record ---
Author Organization [facility] Address [address] [place] [address] Care Team Providers Care Horse Rancher Name Role Phone ALLEY PARSONS Primary Care Provider Homar Fulton [phone] Allergies No Known Allergies Reason For Referral No Information Medications Medication SIG (Take, Route, Frequency, Duration) Notes Start Date End Date Status hydroCHLOROthiazide 12.5 MG 1 capsule in the morning Orally Once a day; Duration: 30 day(s) Active Vitamin D 50 MCG (2000 UT) 1 tablet Oral ly Once a day; Duration: 30 day(s) Active Lisinopril 10 MG 1 tablet Orally Once a day; Duration: 30 day(s) Active Vitamin D (Ergocalciferol) 33264 UNIT 1 capsule Orally QD Active Atorvastatin Calcium 80 MG 1 tablet Oral ly Once a day Active Immunizations Vaccine Route Administration Date Status Comme nts Influenza Unknown 03/10/2022 Refused Problems Problem Type SNOMED Code ICD Code Onset Dates Problem Status W/U Status Risk Notes Problem Colon cancer screening (141681456) Colon cancer screening (Z12.11) Active confirmed Problem History of adenomatous polyp of colon (919172258) History of adenomatous polyp of colon (Z86.010) Active confirmed Problem Diverticulosis of sigmoid colon (098156844) Diverticulosis of sigmoid colon (K57.30) Active confirmed Problem Long-term current use of drug therapy (518912703) 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) Active confirmed Plan Of Treatment Pending Test Test Name Order Date Pathology 05/12/2022 Future Test Test Name Order Date COLONOSCOPY 03/19/2015 COLONOSCOPY 03/10/2022 Insurance Providers Payer Name Payer Address Payer Phone Subscriber Number Group Number Insured Name Patient Relationship to Insured Coverage Start Date Coverage End Date MEDICARE OF [place] [address] [place] [id number] RODERICK SWEET Self - patient is the insured MEDEX ATTN CLAIMS [address] [place] [address] [phone] [id number] RODERICK SWEET Self - patient is the insured Medical (General) History Medical History History ICD Code Screening colonoscopy 02/2005 , hyperplastic polyp and small internal hemorrhoids Hyperlipidemia Denies [place],DM,CVA,Lung disease,renal dise ase Sleep apnea--uses a CPAP He describes a yearly echocardiogram wit h Dr. Hernández HTN Screening Colonoscopy in May 5-one tubular adenoma removed Surgical History Surgery Date(Month/Year)
== END 2025-04-26 10:01 | disposition home or self-care (01) ==
LOC: HO.HCS 09:20
PROVIDERS: PCP Nurse Practitioner Family; Visit Provider Nurse Practitioner Family
DX: I35.0 Nonrheumatic aortic (valve) stenosis (principal); I10 Essential (primary) hypertension; E78.5 Hyperlipidemia, unspecified; R00.1 Bradycardia, unspecified
CPT/HCPCS: 93010; 99214; G2211

== ENCOUNTER → 2025-04-26 09:19 | Outpatient (BNVA) | payer MEDICARE, SELFPAY | PROVIDERS: PCP Nurse Practitioner Family; Visit Provider Nurse Practitioner Family | DX: I10 Essential (primary) hypertension (principal); I35.0 Nonrheumatic aortic (valve) stenosis; E78.5 Hyperlipidemia, unspecified; R00.1 Bradycardia, unspecified | CPT/HCPCS: 93005; 99212 ==

== ENCOUNTER → 2025-05-09 08:03 | Outpatient (REF) | payer MEDICARE, SELFPAY ==
--- NOTE | 2025-05-09 08:09 | HM_ITS ---
* Total monitoring time 3 days. * Underlying rhythm is sinus with an average rate of 53/Min. * About 63% of the time, rate < 60/Min. * Frequent ventricular ectopy. One triplet. * Rare supraventricular ectopy. * No significant pauses or high-grade AV blocks. * No patient markers or diary events. MTDD
--- OUTSIDE RECORDS SUMMARY | 2025-05-09 08:17 | XMS_ITS | Patient Health Record ---
Author Organization [facility] Address [address] [place] [address] Care Team Providers Care Coding Educator Name Role Phone ALLEY PARSONS Primary Care Provider Homar Fulton [phone] Allergies No Known Allergies Reason For Referral [...] Duration: 30 day(s) Active Vitamin D (Ergocalciferol) 26115 UNIT 1 capsule Orally QD Active Atorvastatin Calcium 80 MG 1 tablet Oral ly Once a day Active Immunizations Vaccine Route Administration Date Status Comme nts Influenza Unknown 03/10/2022 Refused Problems Problem Type SNOMED Code ICD Code Onset Dates Problem Status W/U Status Risk Notes Problem Colon cancer screening (377832248) Colon cancer screening (Z12.11) Active confirmed Problem History of adenomatous polyp of colon (934263044) History of adenomatous polyp of colon (Z86.010) Active confirmed Problem Diverticulosis of sigmoid colon (986599857) Diverticulosis of sigmoid colon (K57.30) Active confirmed Problem Long-term current use of drug therapy (556638003) [facility] current use of diuretic (Z79.899) Active confirmed Plan Of Treatment Pending Test Test Name Order Date Pathology 05/12/2022 Future Test Test Name Order Date COLONOSCOPY 03/19/2015 COLONOSCOPY 03/10/2022 Insurance Providers Payer Name Payer Address Payer Phone Subscriber Number Group Number Insured Name Patient Relationship to Insured Coverage Start Date Coverage End Date MED[place]ARE OF [place] [address] [place] [address] [id number] RODERICK SWEET Self - patient is the insured MEDEX ATTN CLAIMS [address] [place] [address] [id number] RODERICK SWEET Self - patient is the insured Medical (General) History Medical History History ICD Code Screening colonoscopy 02/2005 , hyperplastic polyp and small internal hemorrhoids Hyperlipidemia Denies [place],DM,CVA,Lung disease,renal dise ase Sleep apnea--uses a CPAP He describes a yearly echocardiogram wit h Dr. Hernández HTN Screening Colonoscopy in May 5-one tubular adenoma removed Surgical History Surgery Date(Month/Year)
--- OUTSIDE RECORDS SUMMARY | 2025-05-09 08:17 | XMS_ITS | Clinical Summary ---
Author Organization [facility] Address [address] [place] [address] Care Team Providers Care Bleach Tester Name Role Phone Unavailable Primary Care Provider [...]
--- OUTSIDE RECORDS SUMMARY | 2025-05-09 08:17 | XMS_ITS | Patient Health Record ---
Author Organization [facility] radha [place] Address [address] [place] [address] Care Team Providers Care Security Technician Name Role Phone Brian Chawla MD Primary Care Provider Elliott Davis Unavailable [phone] Reason For Referral No Information Medications Medication SIG (Take, Route, Frequency, Duration) Notes Start Date End Date Status Simvastatin 40 MG 1 tablet in the even ing Orally Once a day; Duration: 30 day(s) Active Nystatin-Triamcinolone 314021-6.1 UNIT/GM-% 1 application to affected area Externally Twice a day; Duration: 30 days 12/01/2012 Active Problems Problem Type SNOMED Code ICD Code Onset Dates Problem Status W/U Status Risk Notes Problem Onychomycosis (710232916) Onychomycosis (110.1) Active confirmed Problem Pain in limb (50005726) Pain in Limb (729.5) Active confirmed Problem Tinea pedis (6674171) Tinea Pedis (110.4) Active confirmed Plan Of Treatment No Information Insurance Providers Payer Name Payer Address Payer Phone Subscriber Number Group Number Insured Name Patient Relationship to Insured Coverage Start Date Coverage End Date [employer] All Others [address] [place] [address] [id number] RODERICK SWEET Self - patient is the insured Medical (General) History Medical History History ICD Code cholesterol
== END ==
LOC: HO.CARD 08:03
PROVIDERS: PCP Nurse Practitioner Family; Visit Provider Nurse Practitioner Family
DX: R00.1 Bradycardia, unspecified (principal)
CPT/HCPCS: 93242

== ENCOUNTER → 2025-05-09 08:09 | Outpatient (BNV) | payer MEDICARE, SELFPAY | PROVIDERS: PCP Nurse Practitioner Family; Visit Provider Internal Medicine | DX: I49.3 Ventricular premature depolarization (principal); I49.49 Other premature depolarization | CPT/HCPCS: 93244 ==

== ENCOUNTER 2025-06-18 07:02 | Outpatient (REF) | payer MEDICARE, SELFPAY ==
--- OUTSIDE RECORDS SUMMARY | 2025-06-18 07:05 | XMS_ITS | Patient Health Record ---
Author Organization [facility] Address [address] [place] [address] Care Team Providers Care Equipment Technician Name Role Phone ALLEY PARSONS Primary Care Provider Homar Fulton [phone] Allergies No Known Allergies Reason For Referral No Information Medications Medication SIG (Take, Route, Frequency, Duration) Notes Start Date End Date Status hydroCHLOROthiazide 12.5 MG Capsule 1 capsule in the morning Orally Once a day; Duration: 30 day(s) Active Vitamin D 50 MCG (2000 UT) Tablet 1 tablet Orally Once a day; Duration: 30 day(s) Active Lisinopril 10 MG Tablet 1 tablet Orally Once a day; Duration: 30 day(s) Active Vitamin D (Ergocalciferol) 38686 UNIT Capsule 1 capsule Orally QD Ac tive Atorvastatin Calcium 80 MG Tablet 1 tablet Orally Once a day Active Immunizations Vaccine Route Administration Date Status Comme nts Influenza Unknown 03/10/2022 Refused Social History Social History Additional Details Category Social Info Options Details Miscellaneous: Marital status: 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 [employer] Chief Section Notes: Nonsmoker; no sig alcohol Nonsmoker; no sig alcohol Problems Problem Type SNOMED Code ICD Code Onset Dates Problem Status W/U Status Risk Notes Problem Colon cancer screening (301551521) Colon cancer screening (Z12.11) Active confirmed Problem History of adenomatous polyp of colon (936568814) History of adenomatous polyp of colon (Z86.010) Active confirmed Problem Diverticulosis of sigmoid colon (896681539) Diverticulosis of sigmoid colon (K57.30) Active confirmed Problem Long-term current use of drug therapy (327015303) 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 (Z79.899) Active confirmed Plan Of Treatment Pending Test Test Name Order Date Pathology 05/12/2022 Future Test Test Name Order Date COLONOSCOPY 03/19/2015 COLONOSCOPY 03/10/2022 Insurance Providers Payer Name Payer Address Payer Phone Subscriber Number Group Number Insured Name Patient Relationship to Insured Coverage Start Date Coverage End Date [place]ARE OF [place] [address] [place] [address] [id number] RODERICK SWEET Self - patient is the insured MEDEX ATTN CLAIMS [address] [place] [address] [phone] [id number] RODERICK SWEET Self - patient is the insured Medical (General) History Medical History History ICD Code Screening colonoscopy 02/2005 , hyperplastic polyp and small internal hemorrhoids Hyperlipidemia Denies [place],DM,CVA,Lung disease,renal dise ase Sleep apnea--uses a CPAP He describes a yearly echocardiogram wit h Dr. Hernández HTN Screening Colonoscopy in May 5-one tubular adenoma removed Surgical History Surgery Date(Month/Year)
--- OUTSIDE RECORDS SUMMARY | 2025-06-18 07:05 | XMS_ITS | Clinical Summary ---
Author Organization [facility] Address [address] [place] [address] Care Team Providers Care President And Chief Commercial Officer Name Role Phone Unavailable Primary Care [...]
--- OUTSIDE RECORDS SUMMARY | 2025-06-18 07:05 | XMS_ITS | Patient Health Record ---
Author Organization [facility] radha [place] Address [address] [place] [address] Care Team Providers Care Digital Project Manager Name Role Phone Brian Chawla MD Primary Care Provider Elliott Davis Unavailable [phone] Reason For Referral No Information Medications Medication SIG (Take, Route, Frequency, Duration) Notes Start Date End Date Status Simvastatin 40 MG 1 tablet in the even ing Orally Once a day; Duration: 30 day(s) Active Nystatin-Triamcinolone 254808-3.1 UNIT/GM-% 1 application to affected area Externally Twice a day; Duration: 30 days 12/01/2012 Active Problems Problem Type SNOMED Code ICD Code Onset Dates Problem Status W/U Status Risk Notes Problem Onychomycosis (420061187) Onychomycosis (110.1) Active confirmed Problem Pain in limb (47254546) Pain in Limb (729.5) Active confirmed Problem Tinea pedis (2128533) Tinea Pedis (110.4) Active confirmed Plan Of Treatment No Information Insurance Providers Payer Name Payer Address Payer Phone Subscriber Number Group Number Insured Name Patient Relationship to Insured Coverage Start Date Coverage End Date [employer] All Others [address] [place] [address] [id number] RODERICK SWEET Self - patient is the insured Medical (General) History Medical History History ICD Code cholesterol
[2025-06-18 10:15] LABS: Appearance Urine Clear; Glucose Urine UA Negative (Negative); PH 6.5 (5.0-9.0); Specific Gravity - Urine 1.010 (1.005-1.025)
[2025-06-18 10:41] LABS: MANUAL DIFF FLAG NO
[2025-06-18 10:48] LABS: Hematocrit 45.0 % (42.0-52.0); Hemoglobin 14.8 g/dl (14.0-18.0); Imm Gran Abs Auto 0.02 X10*3/uL (0.00-0.03); Imm Gran Pct Auto 0.3 % (0.0-0.4); Lymphocytes Absolute Auto 1.7 X10*3/uL (1.2-4.9); Mean Corpuscular HGB Conc 32.9 g/dl (31.0-36.0); Mean Corpuscular Hemoglobin 30.1 pg (27.0-33.0); Mean Corpuscular Volume 91.6 fL (80.0-98.0); NRBC Abs Auto 0.000 X10*3/uL (0.0-0.012); NRBC Pct Auto 0.0 /100WBC (0.0-0.2); Platelet Count 161 X10*3/uL (160-400); Red Blood Count 4.91 X10*6/uL (4.60-5.80); White Blood Count 6.4 X10*3/uL (4.8-10.8)
[2025-06-18 11:19] LABS: Alanine Aminotransferase 51 U/L (0-40); Albumin Level 4.4 g/dL (3.5-5.0); Alkaline Phosphatase 68 U/L (39-117); Anion Gap 10 (12-20); Aspartate Amino Transferase 37 U/L (5-37); Blood Urea Nitrogen 20 mg/dL (9-16); Calcium 9.4 mg/dL (8.4-10.2); Carbon Dioxide 28 mmol/L (22-29); Chloride 106 mmol/L (96-108); Cholesterol 147 mg/dL (<200); Estimated Glomerular Filt Rate > 60; HDL Cholesterol 42 mg/dL (>40); Potassium 4.3 mmol/L (3.3-5.1); Sodium 140 mmol/L (135-145); Total Protein 7.1 g/dL (6.5-8.0); Triglycerides 95 mg/dL (<150)
[2025-06-18 11:32] LABS: Prostate Specific Antigen 3.38 ng/mL (<0.05-4.0)
== END 2025-06-18 07:03 | disposition home or self-care (01) ==
LOC: HO.HMGCLDS 07:02
PROVIDERS: PCP Nurse Practitioner Family; Visit Provider Nurse Practitioner Family
DX: Z12.5 Encounter for screening for malignant neoplasm of prostate (principal); N40.1 Benign prostatic hyperplasia with lower urinary tract symptoms; R35.0 Frequency of micturition; E78.5 Hyperlipidemia, unspecified; E55.9 Vitamin D deficiency, unspecified
CPT/HCPCS: 36415; 80053; 80061; 81003; 82306; 84153; 84443; 85025

== ENCOUNTER 2025-06-25 07:14 | Outpatient (AMB) | payer MEDICARE, SELFPAY ==
--- NOTE | 2025-06-25 07:14 | A.OFFVIS_ITS ---
Intake Visit Reasons: 1y/PSA Intake Note: Patient presents today for Telehealth 1 yr follow up labs done 06/18/25 PSA: 3.38 Urology Medications: none Blood Thinner: none No Abx Allergy System Archive Analyst Required: No Accompanied by: Self / Same As Patient Allergies Codeine Allergy (Unknown, Uncoded 06/25/25 08:51) rash Medication List - Last Reconciled 06/25/25 by ABDULAZIZ Bedoya-EZRA atorvastatin 80 mg PO BEDTIME cetirizine (Zyrtec) 10 mg PO DAILY PRN CPAP CPAP supplies-mask, tubing, filters & headgear. Use at bedtime ergocalciferol (vitamin D2) 1,250 mcg PO QWEEK 90 days ezetimibe 10 mg PO DAILY hydrochlorothiazide 12.5 mg PO DAILY 90 days lisinopril 10 mg PO DAILY HPI Comments Details: Ruben Chavez is a very pleasant 74-year-old male patient of Dr. Argueta. He has a past medical history of fatty liver, thrombocytopenia, dyslipidemia, hypertension, and aortic stenosis. He is being followed up on today via video telehealth. In discussion with the patient today he reports he has been recently diagnosed with COVID. He denies having had any bothersome urinary issues or concerns since his last office visit here approximately 1 year ago. Most recent PSA results reviewed with the patient today. As noted and trended below. PSAs: 08/18 2.4, 01/16 1.9, 03/20 3.0, 06/19 2.0, 06/20 3.4 We did discussed slight increase in PSA over the last year as well as labile PSA. We did discussed potential causes of this finding as well as further interventions and risks and benefits of these interventions. Previous workup has included a retroperitoneal ultrasound 06/19 that noted bilateral kidneys with no masses or hydronephrosis. Possible stone versus cortical calcification in the right mid pole measuring approximately 5 mm. Pre void bladder volume is approximately 490 mL. Postvoid bladder volume is approximately 170 mL. Prostate measures approximately 73 mL. He denies urinary urgency, urinary frequency, incontinence, nocturia, hematuria, dysuria, foul smelling urine, changes to urinary stream, flank pain, fever, and or chills. He is happy with his current voiding parameters. All questions were answered. He otherwise offers no other issues or concerns at this time. [facility] Medical History Fatty liver Refused influenza vaccine Refused pneumococcal vaccination Bradycardia Thrombocytopenia Dyslipidemia Hypertension Aortic stenosis Surgical History No pertinent past surgical history Family History Father AA (aortic aneurysm) Social History Housing: House Alcohol intake: current Alcohol intake frequency: a few times a week Alcohol type: beer Patient Tobacco Use Status: Never used Tobacco e-Cigarette/Vaping Use: Never Used Second Hand Smoke Exposure: No service: No Current occupational status: retired Cognitive needs: No Hearing needs: No Vision needs: No Review of Systems Const All systems reviewed & are unremarkable except as noted in HPI and below Physical Exam Const General: cooperative, healthy appearing, comfortable, no acute distress, well developed, alert and awake Orientation/consciousness: patient oriented x3 Resp Effort & Inspection: normal respiratory effort and able to speak in complete sentences Neuro General: patient oriented x3 Psych Appearance: grossly normal Speech and movement: Clear speech present Affect: normal affect Attitude: cooperative Thought process: Normal thought process present Thought content: Normal thought content present Insight: Fair insight present (Psych) Judgement: Fair judgement present (Psych) Telehealth Telehealth Telehealth Platform: Webymaster Location of provider rendering services: practice address Location of patient: address on file Patient Identification confirmed using: Name, : Yes Telehealth method: video Patient verbally consented to treatment: Yes Patient verbally consented to billing insurance company: Yes Patient informed of any privacy concerns related to visit: Yes Minutes spent on Phone/Video with Pt.: 15 Assessment & Plan Assessment & Plan (1) Increased prostate specific antigen (PSA) velocity: Code(s): R97.20 - Elevated prostate specific antigen [PSA] Category: Medical (2) Enlarged prostate: Code(s): N40.0 - Benign prostatic hyperplasia without lower urinary tract symptoms Category: Medical Plan Recent PSA results reviewed with the patient today; as noted above. Patient currently denies any bothersome urinary issues or concerns. He reports be happy with current voiding parameters. We did discuss increase in PSA over the last year as well as labile PSA; we discussed potential causes of this issue as well as further interventions and risks and benefits of these interventions. All questions were answered. Will obtain redraw of PSA with no sex the night before, no caffeine morning of, and no heavy lifting 1-2 days prior. Will obtain PSA in 1 year. Follow-up in 1 year with PSA and PVR; or sooner with any issues, concerns, and or questions. Orders: Orders Prostate Specific Antigen Today N40.0 - Benign prostatic hyperplasia without lower urinary tract symptoms, R97.20 - Elevated prostate specific antigen [PSA] Prostate Specific Antigen 1 Year N40.0 - Benign prostatic hyperplasia without lower urinary tract symptoms, R97.20 - Elevated prostate specific antigen [PSA] Prostate Specific Antigen Scr 05/29/25 Z12.5 - Encounter for screening for malignant neoplasm of prostate Patient Instructions: The patient had an opportunity to ask questions regarding the treatment plan. All questions were answered. Physical exam, labs, and imaging were discussed and reviewed in detail. As well as risks, benefits, and discussion of treatment choices. No major barriers to understanding were identified. The patient expressed understanding and agreement with the above treatment plan. The patient was made aware they should contact our office by phone for worsening of their current condition, the appearance of new symptoms, or with any questions or concerns. Compliance is encouraged with any medications and follow up testing that is ordered. It is a privilege to be allowed the opportunity to participate in? your urological care.? Again, if you have any questions or concerns If you have any questions or concerns please do not hesitate to contact me. The office is [phone]. This note is constructed using voice recognition software. While every effort has been made to ensure accuracy balance wheel screw hole driller errors may have been included. Yours sincerely, DEBORAH Bedoya Coding Level of Care Code Tele Est Pt Level 3 (42159) Diagnoses Increased prostate specific antigen (PSA) velocity R97.20 Enlarged prostate N40.0
--- OUTSIDE RECORDS SUMMARY | 2025-06-25 08:53 | XMS_ITS | Patient Health Record ---
Author Organization [facility] radha [place] Address [address] [place] [address] Care Team Providers Care Geothermal Plant Manager Name Role Phone Brian Chawla MD Primary Care Provider Elliott Davis Unavailable [phone] Reason For Referral No Information Medications Medication SIG (Take, Route, Frequency, Duration) Notes Start Date End Date Status Simvastatin 40 MG 1 tablet in the even ing Orally Once a day; Duration: 30 day(s) Active Nystatin-Triamcinolone 185973-8.1 UNIT/GM-% 1 application to affected area Externally Twice a day; Duration: 30 days 12/01/2012 Active Problems Problem Type SNOMED Code ICD Code Onset Dates Problem Status W/U Status Risk Notes Problem Onychomycosis (616810213) Onychomycosis (110.1) Active confirmed Problem Pain in limb (76920125) Pain in Limb (729.5) Active confirmed Problem Tinea pedis (1272522) Tinea Pedis (110.4) Active confirmed Plan Of Treatment No Information Insurance Providers Payer Name Payer Address Payer Phone Subscriber Number Group Number Insured Name Patient Relationship to Insured Coverage Start Date Coverage End Date [employer] All Others [address] [place] [address] [phone] [id number] RODERICK SWEET Self - patient is the insured Medical (General) History Medical History History ICD Code cholesterol
--- OUTSIDE RECORDS SUMMARY | 2025-06-25 08:53 | XMS_ITS | Clinical Summary ---
Author Organization [facility] Address [address] [place] [address] Care Team Providers Care Clinical Social Work Aide Name Role Phone Unavailable Primary Care Provider [...]
--- OUTSIDE RECORDS SUMMARY | 2025-06-25 08:53 | XMS_ITS | Patient Health Record ---
Author Organization [facility] Address [address] [place] [address] Care Team Providers Care Lamp Assembler Name Role Phone ALLEY PARSONS Primary Care Provider Homar Fulton [phone] Allergies No Known Allergies Reason For Referral [...] Duration: 30 day(s) Active Vitamin D (Ergocalciferol) 00776 UNIT Capsule 1 capsule Orally QD Ac tive Atorvastatin Calcium 80 MG Tablet 1 tablet Orally Once a day Active Immunizations Vaccine Route Administration Date Status Comme nts Influenza Unknown 03/10/2022 Refused Social History Social History Additional Details Category Social Info Options Details Miscellaneous: Marital status: 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 [employer] Chief Section Notes: Nonsmoker; no sig alcohol Nonsmoker; no sig alcohol Problems Problem Type SNOMED Code ICD Code Onset Dates Problem Status W/U Status Risk Notes Problem Colon cancer screening (464582520) Colon cancer screening (Z12.11) Active confirmed Problem History of adenomatous polyp of colon (373809013) History of adenomatous polyp of colon (Z86.010) Active confirmed Problem Diverticulosis of sigmoid colon (106978364) Diverticulosis of sigmoid colon (K57.30) Active confirmed Problem Long-term current use of drug therapy (709042013) 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 of diuretic (Z79.899) Active confirmed Plan Of Treatment Pending Test Test Name Order Date Pathology 05/12/2022 Future Test Test Name Order Date COLONOSCOPY 03/19/2015 COLONOSCOPY 03/10/2022 Insurance Providers Payer Name Payer Address Payer Phone Subscriber Number Group Number Insured Name Patient Relationship to Insured Coverage Start Date Coverage End Date MED[place]ARE OF [place] [address] [place] [address] [id number] RODERICK SWEET Self - patient is the insured MEDEX ATTN CLAIMS [address] [place] [address] [id number] RODERICK SWEET Self - patient is the insured Medical (General) History Medical History History ICD Code Screening colonoscopy 02/2005 , hyperplastic polyp and small internal hemorrhoids Hyperlipidemia Denies [place],DM,CVA,Lung disease,renal dise ase Sleep apnea--uses a CPAP He describes a yearly echocardiogram wit h Dr. Hernández HTN Screening Colonoscopy in May 5-one tubular adenoma removed Surgical History Surgery Date(Month/Year)
== END 2025-06-25 09:05 | disposition home or self-care (01) ==
LOC: HO.HUSH 07:14
PROVIDERS: PCP Nurse Practitioner Family; Visit Provider Nurse Practitioner Family
DX: R97.20 Elevated prostate specific antigen [PSA] (principal); N40.0 Benign prostatic hyperplasia without lower urinary tract symptoms
CPT/HCPCS: 99213